=== PATIENT | female | born 1945 | race Two or more races ===

== ENCOUNTER 2024-07-27 22:22 | Inpatient (IN) | payer BC, OTHER ==
[~2024-07-27] VITALS: Ht 152.4 cm; Wt 60.0 kg
--- NOTE | 2024-07-27 22:40 | ED.PDOC ---
GI ASSESSMENT HPI Comments 78-year-old female who came to ER via EMS for GI bleed. Per EMS, patient was picked up at home, or patient has been complaining of left upper quadrant abdominal pain since yesterday, associated with nausea, vomiting, rectal pain and 1 episode of bright red rectal bleeding when she went to the bathroom. Chief Complaint: GI bleed Time Seen by MD: 22:40 Reviewed Notes: Legal Director Notes Allergies: Coded Allergies: No Known Drug Allergy (Verified Allergy, Unknown, 07/27/24) Information Source: Patient, Emergency Med Personnel Mode of Arrival: EMS Timing: Hours Duration: Intermittent Prehospital treatment: None Quality: Aching Vomitus: Watery Stool: Blood Streaked Severity: Moderate Recent: None Recent Hx of: None Pain Location: LUQ Modifying Factors: Nothing Associated sign and symptoms: Nausea, Vomiting, Hematochezia, Abdominal Pain Past Medical History PAST MEDICAL HISTORY: DM, HTN Surgical History: Denies all surgeries ACOUSTIC ENGINEER History: Denies all ACOUSTIC ENGINEER Hx Family History Family History: Reviewed,noncontributory to illness Social History Smoker: Non-Smoker Alcohol: Denies ETOH Use Drugs: Denies Drug Use Lives In: Home Constitutional: denies: chills, diaphoresis, fatigue, fever, malaise, sweats, weakness, others EENTM: denies: blurred vision, double vision, ear bleeding, ear discharge, ear drainage, ear pain, ear ringing, eye pain, eye redness, hearing loss, mouth pain, mouth swelling, nasal discharge, nose bleeding, nose congestion, nose pain, photophobia, tearing, throat pain, throat swelling, voice changes, others Respiratory: denies: cough, hemoptysis, orthopnea, SOB at rest, shortness of breath, SOB with excertion, stridor, wheezing, others Cardiovascular: denies: chest pain, dizzy spells, diaphoresis, Dyspnea on exertion, edema, irregular heart beat, left arm pain, lightheadedness, palpita tions, PND, syncope, others Gastrointestinal: reports: nausea, rectal bleeding, rectal pain, vomiting; denies: abdomen distended, abdominal pain, blood streaked bowels, constipated, diarrhea, dysphagia, difficulty swallowing, hematemesis, melena, poor appetite, poor fluid intake, others Genitourinary: denies: abnormal vagina bleeding, burning, dyspareunia, dysuria, flank pain, frequency, hematuria, incontinence, pain, , vagina discharge, urgency, others Neurological: denies: dizziness, fainting, headache, left sided numbness, left sided weakness, numbness, paresthesia, pre-existing deficit, right sided numbness, right sided weakness, seizure, speech problems, tingling, tremors, weakness, others Musculoskeletal: denies: back pain, gout, joint pain, joint swelling, muscle pain, muscle stiffness, neck pain, others Integumetry: denies: bruises, change in color, change in hair/nails, dryness, laceration, lesions, lumps, rash, wounds, others Allergic/Immunocompromised: denies: Difficulty Healing, Frequent Infections, Hives, Itching, others Hematologic/Lymphatic: denies: anemia, blood clots, easy bleeding, easy bruising, swollen glands, others Endocrine: denies: excessive hunger, excessive sweating, excessive thirst, excessive urination, flushing, intolerance to cold, intolerance to heat, unexplained weight gain, unexplained weight loss, others Psychiatric: denies: anxiety, bipolar disorder, depression, hopeless, panic disorder, schizophrenia, sleepless, suicidal, others Physical Exam General Appearance: No Apparent Distress, Normal HEENT: Normal ENT Inspection, Pharynx Normal, TMs Normal Neck: Full Range of Motion, Non-Tender, Normal, Normal Inspection Respiratory: Chest Non-Tender, Lungs Clear, No Accessory Muscle Use, No Respiratory Distress, Normal Breath Sounds Cardiovascular: No Edema, No JVD, No Murmur, No Gallop, Normal Peripheral Pulses, Regular Rate/Rhythm Breast Exam: Deferred Gastrointestinal: No Organomegaly, Non Tender, No Pulsatile Mass, Normal Bowel Sounds, Soft Genitalia: Deferred Pelvic: Deferred Rectal: Deferred Extremities: No calf tenderness, Normal capillary refill, Normal inspection, Normal range of motion, Non-tender, No pedal edema Musculoskeletal : Apperance: Normal Neurologic: Alert, pattern mechanic II-XII nml as Tested, No Motor Deficits, Normal Affect, Normal Mood, No Sensory Deficits Cerebellar Function: Normal Reflexes: Normal Skin: Dry, Normal Color, Warm Lymphatic: No Adenopathy Was a procedure done? Was a procedure done?: No GI differential Dx Differential Diagnosis: Constipation, Diverticular disease, Gastritis/PUD, Gastroenteritis, GI hemorrhage, Inflammatory BD, Ischemic Bowel, Pancreatitis, UTI, Urolithiasis, Anemia X-Ray, Labs, Meds, VS Vital Signs Date Time Temp Pulse Resp B/P (MAP) Pulse Ox O2 Delivery O2 Flow Rate FiO2 07/27/24 23:16 97.5 86 18 118/86 (97) 94 Lab Test 07/28/24 00:35 07/27/24 22:46 Range/Units Urine Color Light-brown Yellow Urine Clarity Ex.turbid Clear Urine pH 6.0 5.0-9.0 Urine Specific [place] 1.015 1.001-1.035 Urine Protein 2+ H Negative Urine Ketones Negative Negative Urine Blood 2+ H Negative /uL Urine Nitrite 2+ H Negative Urine Bilirubin Negative Negative Urine Urobilinogen Normal Negative mg/dL Urine Leukocyte Esterase 3+ Negative /uL Urine RBC 7 0 - 4 /hpf Urine WBC 3818 0 - 5 /hpf Urine WBC Clumps Present None Seen /hpf Urine Squamous Epithelial Cells None seen <5 /hpf Urine Bacteria None seen None Seen /hpf Urine Mucus Few None Seen Urine Yeast (Budding) Many None Seen /hpf Urine Glucose 3+ H Normal mg/dL White Blood Count 4.9 4.4-10.8 10^3/uL Red Blood Count 3.04 L 4.0-5.20 10^6/uL Hemoglobin 9.6 L 12.2-16.2 g/dL Hematocrit 28.2 L 36.0-46.0 % Mean Corpuscular Volume 92.7 80.0-100.0 fL Mean Corpuscular Hemoglobin 31.6 28.0-32.0 pg Mean Corpuscular Hemoglobin Concent 34.0 32.0-36.0 g/dL Red Cell Distribution Width 16.4 H 11.8-14.3 % Platelet Count 285 140-450 10^3/uL Mean Platelet Volume 6.9 6.9-10.8 fL Neutrophils (%) (Auto) 77.4 37.0-80.0 % Lymphocytes (%) (Auto) 18.7 10.0-50.0 % Monocytes (%) (Auto) 1.8 0.0-12.0 % Eosinophils (%) (Auto) 1.4 0.0-7.0 % Basophils (%) (Auto) 0.7 0.0-2.0 % Neutrophils # (Auto) 3.8 1.6-8.6 10 ^3/uL Lymphocytes # (Auto) 0.9 0.4-5.4 10 ^3/uL Monocytes # (Auto) 0.1 0-1.3 10 ^3/uL Eosinophils # (Auto) 0.1 0-0.8 10 ^3/uL Basophils # (Auto) 0 0-0.2 10 ^3/uL Nucleated Red Blood Cells 0.1 % Prothrombin Time 10.8 9.3-11.8 sec Prothrombin Time INR 1.02 0.9-1.15 Activated Partial Thromboplast Time 28.2 24.5-34.5 SEC Sodium Level 137 136-145 mmol/L Potassium Level 4.2 3.5-5.1 mmol/L Chloride Level 106 98-107 mmol/L Carbon Dioxide Level 22 20-31 mmol/L Anion Gap 9 5-15 Blood Urea Nitrogen 49 H 9-23 mg/dL Creatinine 3.39 H 0.550-1.02 mg/dL Glomerular Filtration Rate Calc 13 >90 mL/min BUN/Creatinine Ratio 14.5 10.0-20.0 Serum Glucose 202 H 74-106 mg/dL Calcium Level 9.5 8.7-10.4 mg/dL Total Bilirubin 0.2 0.2-1.0 mg/dL Aspartate Amino Transferase (AST) 10 L 13-40 U/L Alanine Aminotransferase (ALT) < 9 7-40 U/L Alkaline Phosphatase 71 46-116 U/L Total Protein 5.5 L 5.7-8.2 g/dL Albumin 3.1 L 3.2-4.8 g/dL Lipase 115 H 12-53 U/L Current Medications Medications (Trade) Dose Ordered Sig/Anthony Route Start Time Stop Time Status Last Admin Sodium Chloride 500 ml @ 500 mls/hr Q1H ONCE IVB 07/27/24 22:45 07/27/24 23:44 DC 07/27/24 23:56 Ceftriaxone Sodium 50 ml @ 100 mls/hr ONCE ONCE IV 07/28/24 02:15 07/28/24 02:44 DC 07/28/24 02:46 Time of 1ST Reevaluation: 22:37 Reevaluation 1ST: Unchanged Time of 2ND Reevaluation: 02:52 Reevaluation 2ND: Unchanged Patient Education/Counseling: Diagnosis, Treatment Family Education/Counseling: No Family Present Departure 1 Departure Time of Disposition: 02:53 Impression: Primary Impression: Urinary tract infection Additional Impressions: Stercoral colitis Fracture of femoral neck, right Disposition: 09 ADMITTED INPATIENT Admit to: Med Surg Condition: Guarded Critical Care Note Critical Care Time?: Yes (35 min-critical care time only) Critical care comment: Total critical care time: Approximately 36 minutes Due to a high probability of clinically significant, life threatening deterioration, the patient required my highest level of preparedness to intervene emergently and I personally spent this critical care time directly and personally managing the patient. This critical care time included obtaining a history; examining the patient; pulse oximetry; ordering and review of studies; arranging urgent treatment with development of a management plan; evaluation of patient's response to treatment; frequent reassessment; and, discussions with other providers. This critical care time was performed to assess and manage the high probability of imminent, life-threatening deterioration that could result in multi-organ failure. It was exclusive of separately billable procedures and treating other patients. Stability Stability form required: No Heart Score Heart Score: Heart Score Response (Comments) Value History N/A 0 EKG N/A 0 Age N/A 0 Risk Factors N/A 0 Troponin N/A 0 Total 0 I personally scribed for SADA DAWKINS MD ([email or web address]) on 07/27/24 at 22:40. Electronically submitted by Dav Aquino ([facility]). SADA DAWKINS MD Jul 27, 2024 22:40
[2024-07-27 23:02] LABS: Basophils # (auto) 0 10 ^3/uL (0-0.2); Basophils % (auto) 0.7 % (0.0-2.0); Eosinophils # (auto) 0.1 10 ^3/uL (0-0.8); Eosinophils % (auto) 1.4 % (0.0-7.0); Hematocrit 28.2 % (36.0-46.0); Hemoglobin 9.6 g/dL (12.2-16.2); Lymphocytes # (auto) 0.9 10 ^3/uL (0.4-5.4); Lymphocytes % (auto) 18.7 % (10.0-50.0); Mean Corpuscular Hemoglobin 31.6 pg (28.0-32.0); Mean Corpuscular Volume 92.7 fL (80.0-100.0); Monocytes # (auto) 0.1 10 ^3/uL (0-1.3); Monocytes % (auto) 1.8 % (0.0-12.0); Neutrophils # (auto) 3.8 10 ^3/uL (1.6-8.6); Neutrophils % (auto) 77.4 % (37.0-80.0); Nucleated Red Blood Cells % 0.1 %; Platelet Count (auto) 285 10^3/uL (140-450); Red Blood Cells 3.04 10^6/uL (4.0-5.20); Red Cell Distribution Width 16.4 % (11.8-14.3); White Blood Cell 4.9 10^3/uL (4.4-10.8)
[2024-07-27 23:17] LABS: Alkaline Phosphatase 71 U/L (46-116); Anion Gap 9 (5-15); BUN/Creatinine Ratio 14.5 (10.0-20.0); Calcium 9.5 mg/dL (8.7-10.4); Carbon Dioxide 22 mmol/L (20-31); Chloride 106 mmol/L (98-107); Potassium 4.2 mmol/L (3.5-5.1); Sodium 137 mmol/L (136-145)
[2024-07-27 23:19] LABS: Alanine Aminotransferase < 9 U/L (7-40); Albumin 3.1 g/dL (3.2-4.8); Aspartate Aminotransferase 10 U/L (13-40); Bilirubin, Total 0.2 mg/dL (0.2-1.0); Blood Urea Nitrogen 49 mg/dL (9-23); Glucose 202 mg/dL (74-106); Total Protein 5.5 g/dL (5.7-8.2)
[2024-07-27 23:46] LABS: INR 1.02 (0.9-1.15); Partial Thromboplastin Time 28.2 SEC (24.5-34.5); Prothrombin Time 10.8 sec (9.3-11.8)
[2024-07-27] MEDS: SODIUM CHLORIDE 0.9% 500 ML IVB ONE (23:56)
[2024-07-27 23:59] LABS: Lipase 115 U/L (12-53)
[2024-07-28 01:37] LABS: Urine Bacteria None Seen /hpf (None Seen)
[2024-07-28 02:02] LABS: Urine Blood 2+ /uL (Negative); Urine Budding Yeast MANY /hpf (None Seen); Urine Clarity Ex.Turbid (Clear); Urine Color Light-Brown (Yellow); Urine Mucus FEW (None Seen); Urine Protein, UAD 2+ (Negative); Urine Specific Gravity 1.015 (1.001-1.035); Urine Squamous Epithelial Cell None Seen /hpf (<5); Urine Urobilinogen Normal (Negative); Urine WBC 3818 /hpf (0 - 5); Urine WBC Clumps PRESENT /hpf (None Seen)
--- NOTE | 2024-07-28 02:22 | DVH ---
CLINICAL HISTORY: abd pain, lower GI bleed TECHNIQUE: CT of the abdomen and pelvis was performed without intravenous contrast. This exam was per formed according to our departmental dose optimization program. Up-to-date CT equipment and radiation dose reduction techniques are utilized as appropriate. COMPARISON: None FINDINGS: Lower Thorax: Mild bronchial wall thickening in the lung bases. Linear bibasilar scarring or atelecta sis. Small bilateral pleural effusions. Normal-sized heart. Partially imaged mild aortic valve calci fications and mild coronary artery calcifications. Liver and Biliary system: Normal-sized liver. No definite hepatic lesion. There is cholelithiasis in a mildly dilated gallbladder. Question of gallbladder wall thickening. There is mild dilatation of th e common bile duct measuring 1.2 cm on coronal image 38. There is a calcification in the central live r which may be within a bile duct ( series 601 image 36 ). Spleen: Unremarkable. Adrenal Glands and Kidneys: Normal adrenal glands. There is no hydronephrosis or nephrolithiasis. Pancreas and Retroperitoneum: Mildly atrophic pancreas. There is no retroperitoneal lymphadenopathy. Aorta and Major Vessels: Aortoiliac vessels are normal in caliber containing mild calcified plaque. Bowel, Mesentery and Peritoneal space: Moderate to marked retained stool in the rectum with mild rect al wall thickening. Mild dilatation of the rectum measuring 7.1 cm AP on sagittal image 66. There is presacral edema. There is [id number] predominantly distal colonic diverticulosis. Normal append ix. There is no free air or loculated fluid collection. The remainder of the bowel loops are normal c aliber. Trace ascites. Pelvis: Atrophic uterus containing calcified fibroids. The urinary bladder is decompressed about a Fo yaniv catheter. There is no pelvic lymphadenopathy. Abdominal wall and Osseous Structures: There is mild body wall edema. There is chronic nonunited frac ture of the right femoral neck with coxa vera angulation. There is chronic lucency and destruction of the right femoral head, proximal right femoral shaft, and right acetabulum as well as some sclerosis . There is scattered heterotopic ossification about the right hip joint. There is a right hip joint e ffusion /soft tissue thickening . There is bony demineralization. There is moderate multilevel lower thoracic and lumbar spondylosis. A prominent lucency is seen within the medial left femoral head whic h could be a subchondral cyst. Tiny sclerotic foci in the proximal femurs and pelvis likely bone isl ands. Mild left curvature of the lumbar spine. Multilevel spondylolisthesis in the lumbar spine with grade 1/2 anterolisthesis at L4-L5. Multilevel degenerative neural foraminal and spinal stenosis with up to severe spinal stenosis and severe bilateral neural foraminal stenosis at L4-L5 IMPRESSION: 1. Marked retained stool in the rectum which is mildly dilated with mild wall thickening and presacra l edema. Consider stercoral colitis. 2. Chronic appearing nonunited fracture of the right femoral neck ; there is lucency and sclerosis of the proximal right femur, right femoral head and right acetabulum which could be posttraumatic or re flect sequelae of osteomyelitis with possible chronic and acute components. 3. Mildly dilated gallbladder with cholelithiasis and question of wall thickening. Correlate with ri t upper quadrant ultrasound if there is concern for acute cholecystitis. 4. Mild dilatation of the common bile duct. If there is clinical concern for biliary obstruction, th is could be further evaluated with MRCP. 5. Colonic diverticulosis which is [id number] distally. 6. Small bilateral pleural effusions, trace ascites, and mild body wall edema. 7. Calcified uterine fibroids. 8. Multilevel degenerative neural foraminal and spinal stenosis greatest at L4-L5 where there is grad e 1/2 anterolisthesis, severe bilateral neural foraminal and spinal stenosis.
[2024-07-28] MEDS: cefTRIAXone 1GM/50ML D5W 50 ML IV ONE (02:46)
[2024-07-28] MEDS ORDERED: MORPHINE SULFATE INJ 2 MG/ml SYRG IV PRN (05:30)
[2024-07-28] MEDS ORDERED: NITROGLYCERIN 0.4 MG SL TAB SL PRN (05:30)
[2024-07-28] MEDS ORDERED: ONDANSETRON HCL 4 MG/2 ML VIAL IV PRN (05:30)
--- NOTE | 2024-07-28 05:49 | DVHHP2 ---
VITOR GALEANO MOLD SETTER 07/28/24 0548: History of Present Illness Reason for Visit: BRBPR History of Present Illness 78-year-old female past medical history of C7 fracture, chronic right hip fract ure, asthma, DM, CKD, presents with complaints of lower abdominal pain and bright red blood per rectum x1 day. Patient is bed-bound. Abdomen is tender in the left lower quadrant. Sister states the patient was having bowel movement and bright red blood and clot was removed from the rectum. During the emergency department evaluation CT abdomen and pelvis was positive for stercoral colitis and had demonstration of the right hip fracture vs osteomyelitis. Patient and patient sister confirmed Right hip has chronic fracture for Which the patient chose not to have Surgery. At this time patient denies fevers, chills, shortness of breath, chest pain, nausea, vomiting. Cardiovascular: hyperipidemia Pulmonary: Asthma Musculoskeletal: Chronic low back pain Renal/: Chronic renal insuff Smoke: No ALCOHOL: none Drugs: None Lives: with Family Review of Systems Constitutional: No: Fever, Chills, Sweats, Weakness, Malaise, Other Eyes: No: Pain, Vision change, Conjunctivae inflammation, Eyelid inflammation, Other, Redness ENT: No: Ear pain, Ear discharge, Nose pain, Nose discharge, Nose congestion, Mouth pain, Mouth swelling, Throat pain, Throat swelling, Other Respiratory: No: Cough, Dry, Shortness of breath, SOB with excertion, Wheezing, Hemoptysis, Pleuritic Pain, Sputum, Wheezing, Other Cardiovascular: No: Chest Pain, Palpitations, Orthopnea, Paroxysmal Noc. Dyspnea, Edema, Lt Headedness, Other Gastrointestinal: Abdominal Pain, Constipation, Hematochezia; No: Nausea, Vomiting, Diarrhea, Melena, Other Genitourinary: No Dysuria, No Frequency, No Incontinence, No Hematuria, No Retention, No Other Musculoskeletal: No: other, neck pain, shoulder pain, arm pain, back pain, hand pain, leg pain, foot pain Skin: No: Rash, Lesions, Jaundice, Bruising, Other Neurological: No: Weakness, Numbness, Incoordination, Change in speech, Confusion, Seizures, Other Allergies: Coded Allergies: No Known Drug Allergy (Verified Allergy, Unknown, 07/27/24) Medications Current Medications Medications Dose Ordered Sig/Anthony Route Start Time Stop Time Status Last Admin Dose Admin Sodium Chloride 500 ml @ 50 mls/hr Q10H IV 07/28/24 05:30 07/28/24 15:29 UNV Docusate Sodium 100 mg BID PO 07/28/24 10:00 UNV Acetaminophen 650 mg Q6HP PRN PO 07/28/24 05:30 UNV Ondansetron HCl 4 mg Q4HP PRN IV 07/28/24 05:30 UNV Nitroglycerin 0.4 mg Q5MINP PRN SL 07/28/24 05:30 UNV Morphine Sulfate 2 mg Q30M PRN IV 07/28/24 05:30 UNV Psyllium Hydrophilic Mucilloid 1 pkg BID PO 07/28/24 10:00 UNV Ceftriaxone Sodium 50 ml @ 100 mls/hr DAILY IV 07/28/24 10:00 UNV Exam Vital Signs Vital Signs Date Time Temp Pulse Resp B/P (MAP) Pulse Ox O2 Delivery O2 Flow Rate FiO2 07/28/24 03:02 98 16 123/68 (86) 97 07/28/24 02:52 Room Air* 0 21 07/27/24 23:16 97.5 General Appearance: Alert, Oriented X3, Cooperative, mild distress HEENT: Atraumatic, PERRLA, EOMI Respiratory: Clear to auscultation, Normal air movement Cardiovascular: Regular rate, Normal S1, Normal S2 Abdominal: Soft, Other (Diffuse Tenderness to left lower quadrant) Extremities: No clubbing, No cyanosis, No edema Skin: No rashes, No breakdown Neuro: Normal speech Psych/Mental Status: Mental status NL, Mood NL Labs/Xrays Labs Test 07/28/24 00:35 07/27/24 22:46 Range/Units Urine Color Light-brown Yellow Urine Clarity Ex.turbid Clear Urine pH 6.0 5.0-9.0 Urine Specific [place] 1.015 1.001-1.035 Urine Protein 2+ H Negative Urine Ketones Negative Negative Urine Blood 2+ H Negative /uL Urine Nitrite 2+ H Negative Urine Bilirubin Negative Negative Urine Urobilinogen Normal Negative mg/dL Urine Leukocyte Esterase 3+ Negative /uL Urine RBC 7 0 - 4 /hpf Urine WBC 3818 0 - 5 /hpf Urine WBC Clumps Present None Seen /hpf Urine Squamous Epithelial Cells None seen <5 /hpf Urine Bacteria None seen None Seen /hpf Urine Mucus Few None Seen Urine Yeast (Budding) Many None Seen /hpf Urine Glucose 3+ H Normal mg/dL White Blood Count 4.9 4.4-10.8 10^3/uL Red Blood Count 3.04 L 4.0-5.20 10^6/uL Hemoglobin 9.6 L 12.2-16.2 g/dL Hematocrit 28.2 L 36.0-46.0 % Mean Corpuscular Volume 92.7 80.0-100.0 fL Mean Corpuscular Hemoglobin 31.6 28.0-32.0 pg Mean Corpuscular Hemoglobin Concent 34.0 32.0-36.0 g/dL Red Cell Distribution Width 16.4 H 11.8-14.3 % Platelet Count 285 140-450 10^3/uL Mean Platelet Volume 6.9 6.9-10.8 fL Neutrophils (%) (Auto) 77.4 37.0-80.0 % Lymphocytes (%) (Auto) 18.7 10.0-50.0 % Monocytes (%) (Auto) 1.8 0.0-12.0 % Eosinophils (%) (Auto) 1.4 0.0-7.0 % Basophils (%) (Auto) 0.7 0.0-2.0 % Neutrophils # (Auto) 3.8 1.6-8.6 10 ^3/uL Lymphocytes # (Auto) 0.9 0.4-5.4 10 ^3/uL Monocytes # (Auto) 0.1 0-1.3 10 ^3/uL Eosinophils # (Auto) 0.1 0-0.8 10 ^3/uL Basophils # (Auto) 0 0-0.2 10 ^3/uL Nucleated Red Blood Cells 0.1 % Prothrombin Time 10.8 9.3-11.8 sec Prothrombin Time INR 1.02 0.9-1.15 Activated Partial Thromboplast Time 28.2 24.5-34.5 SEC Sodium Level 137 136-145 mmol/L Potassium Level 4.2 3.5-5.1 mmol/L Chloride Level 106 98-107 mmol/L Carbon Dioxide Level 22 20-31 mmol/L Anion Gap 9 5-15 Blood Urea Nitrogen 49 H 9-23 mg/dL Creatinine 3.39 H 0.550-1.02 mg/dL Glomerular Filtration Rate Calc 13 >90 mL/min BUN/Creatinine Ratio 14.5 10.0-20.0 Serum Glucose 202 H 74-106 mg/dL Calcium Level 9.5 8.7-10.4 mg/dL Total Bilirubin 0.2 0.2-1.0 mg/dL Aspartate Amino Transferase (AST) 10 L 13-40 U/L Alanine Aminotransferase (ALT) < 9 7-40 U/L Alkaline Phosphatase 71 46-116 U/L Total Protein 5.5 L 5.7-8.2 g/dL Albumin 3.1 L 3.2-4.8 g/dL Lipase 115 H 12-53 U/L Assessment/Plan Assessment/Plan Chronic right femoral neck fracture Lower GI bleed Stercoral colitis DM CKD at baseline, (06/09/24 creat 3.94, GFR 11; 07/28/24 creat 3.39, GFR 13) Acute UTI Hx C7 fracture, managed by Rhys Busch DM Plan Admit medical floor Consult gastroenterology. Clear liquid diet. Soup suds enema. Consult orthopedic. Consult nephrology. Monitor BMP. Trend BUN / creatinine. IV ABX Blood glucose checks ACHS with regular insulin sliding scale coverage for optimal glycemic management. Physical therapy evaluation CM consult for home health. GI PPX protonix / DVT ppx heparin Plan discussed with: Patient, Other (Patient sister) My Orders Orders - VITOR GALEANO NP Procedure Category Date Status Time Enema ED NURSING 07/28/24 Transmitted Admit ADMIT 07/28/24 Transmitted 05:28 Code Status CODE 07/28/24 Transmitted 05:28 [facility]ital Signs [facility] 07/28/24 In Process 05:28 Review Orders With LILIAN 07/28/24 In Process Adm. 05:28 Encourage Activity As LILIAN 07/28/24 In Process Tolerate 05:28 Sodium Chloride 0.9% PHA 07/28/24 Logged 05:30 Oxygen By Face Mask RT 07/28/24 Transmitted 05:28 Docusate Sodium PHA 07/28/24 Logged Capsule (Colace 10:00 Acetaminophen Tablet PHA 07/28/24 Logged (Tylenol Tablet) 05:30 Notify Of Changes LILIAN 07/28/24 In Process From Base 05:28 Advance Directive LILIAN 07/28/24 In Process 05:28 Basic Metabolic Panel LAB 07/29/24 Verified 05:00 Basic Metabolic Panel LAB 07/30/24 Verified 05:00 Basic Metabolic Panel LAB 07/31/24 Verified 05:00 Complete Blood Count LAB 07/29/24 Verified 05:00 Complete Blood Count LAB 07/30/24 Verified 05:00 Complete Blood Count LAB 07/31/24 Verified 05:00 Patient Condition ORDERS 07/28/24 Transmitted 05:28 Allergies LILIAN 07/28/24 In Process 05:28 Ondansetron Hcl PHA 07/28/24 Logged (Zofran) 05:30 Sequential LILIAN 07/28/24 In Process Compression Device Nitroglycerin PHA 07/28/24 Logged Sublingual (Ntrostat 05:30 Morphine Sulfate PHA 07/28/24 Logged Injection 05:30 Stat Ekg For Chest LILIAN 07/28/24 In Process Pain 05:28 Notify Of Changes LILIAN 07/28/24 In Process From Base 05:28 Production Officer For LILIAN 07/28/24 In Process 24 Hours 05:28 Emergency Dysrhythmia LILIAN 07/28/24 In Process Protocol 05:28 Rhythm Strips Once LILIAN 07/28/24 In Process Every Shift 05:28 Oxygen By Nasal RT 07/28/24 Transmitted Cannula 05:28 *[facility] CONS 07/28/24 Transmitted 05:28 *Cons[address] Dr[address] Turk CONS 07/28/24 Transmitted Samantha 05:28 *Dr. [facility] CONS 07/28/24 Transmitted -[place] 05:28 Soap Armaan Enema ORDERS 07/28/24 Transmitted 05:28 Soap Armaan Enema ORDERS 07/28/24 Transmitted 11:28 Soap Armaan Enema ORDERS 07/28/24 Transmitted 17:28 Soap Armaan Enema ORDERS 07/28/24 Transmitted 23:28 Soap Armaan Enema ORDERS 07/29/24 Transmitted 05:28 Soap Armaan Enema ORDERS 07/29/24 Transmitted 11:28 Psyllium Powder PHA 07/28/24 Logged (Metamucil Powder) 10:00 Ceftriaxone 1gm/50ml PHA 07/28/24 Logged D5w (Rocephin) 10:00 Date of Service: Jul 28, 2024 Billing Provider: SANDHYA JOHNSON MD Common Visit Codes: NOT BILLABLE SANDHYA JOHNSON MD 07/28/24 1713: Review of Systems Allergies: Coded Allergies: No Known Drug Allergy (Verified Allergy, Unknown, 07/27/24) Additional Comments Additional Comments Additional Comments Patient was seen and evaluated by me. I agree with the assessment and plan as outlined by my nurse practitioner. VITOR GALEANO NP Jul 28, 2024 05:48 SANDHYA JOHNSON MD Jul 28, 2024 17:13
[2024-07-28] MEDS: SODIUM CHLORIDE 0.9% 500 ML IV SCH (06:06)
[2024-07-28] MEDS ORDERED: DEXTROSE (50%) 50ML SYRG IV PRN (06:45)
[2024-07-28] MEDS: ACCU-CHEK COMFORT CURVE STRIP VI SCH (06:58)
[2024-07-28] MEDS: InsuLIN REG 1unit/0.01ml Soln (100units/ml) SC SCH (06:58)
[2024-07-28 08:00] VITALS: PULSE 96; RESP 19; O2SAT 99
[2024-07-28] MEDS: PSYLLIUM PWD 5.8GM PKG PO SCH (10:26)
[2024-07-28] MEDS: DOCUSATE SOD 100 MG CAP PO SCH (10:26)
[2024-07-28 10:49] VITALS: O2SAT 95
[2024-07-28] MEDS ORDERED: LOSA-534 PO (11:21)
[2024-07-28] MEDS ORDERED: DOCU-265 PO (11:21)
[2024-07-28] MEDS ORDERED: ATOR20TA50 PO (11:21)
[2024-07-28] MEDS ORDERED: SEVE0.8P2 PO (11:21)
[2024-07-28] MEDS ORDERED: NIFE1TAB31 PO (11:21)
[2024-07-28] MEDS ORDERED: OXYC325T14 PO (11:21)
[2024-07-28] MEDS ORDERED: ALBU108A5 INH (11:21)
[2024-07-28] MEDS ORDERED: METF-372 PO (11:21)
[2024-07-28 15:57] LABS: Basophils # (auto) 0 10 ^3/uL (0-0.2); Basophils % (auto) 0.5 % (0.0-2.0); Eosinophils # (auto) 0.1 10 ^3/uL (0-0.8); Eosinophils % (auto) 1.3 % (0.0-7.0); Hematocrit 27.3 % (36.0-46.0); Hemoglobin 9.1 g/dL (12.2-16.2); Lymphocytes % (auto) 20.6 % (10.0-50.0); Mean Corpuscular Hemoglobin 31.2 pg (28.0-32.0); Mean Corpuscular Hgb Conc. 33.5 g/dL (32.0-36.0); Mean Corpuscular Volume 93.1 fL (80.0-100.0); Monocytes # (auto) 0.1 10 ^3/uL (0-1.3); Neutrophils # (auto) 3.5 10 ^3/uL (1.6-8.6); Neutrophils % (auto) 75.6 % (37.0-80.0); Nucleated Red Blood Cells % 0.1 %; Platelet Count (auto) 277 10^3/uL (140-450); Red Blood Cells 2.93 10^6/uL (4.0-5.20); Red Cell Distribution Width 16.3 % (11.8-14.3); White Blood Cell 4.7 10^3/uL (4.4-10.8)
[2024-07-28 16:07] LABS: Chloride 106 mmol/L (98-107); Potassium 4.5 mmol/L (3.5-5.1); Sodium 136 mmol/L (136-145)
[2024-07-28 16:08] LABS: Anion Gap 9 (5-15); Carbon Dioxide 21 mmol/L (20-31)
[2024-07-28 16:09] LABS: Calcium 9.4 mg/dL (8.7-10.4)
[2024-07-28 16:14] LABS: BUN/Creatinine Ratio 14.1 (10.0-20.0)
[2024-07-28 16:15] LABS: Blood Urea Nitrogen 49 mg/dL (9-23); Glucose 154 mg/dL (74-106)
[2024-07-28 16:57] VITALS: BP 138/69; PULSE 88; RESP 14; TEMP 97.8; O2SAT 100
[2024-07-28] MEDS ORDERED: hydrALAZINE HCL 20 MG/ML VL IV PRN (17:15)
[2024-07-28 20:00] VITALS: PULSE 94; RESP 16; O2SAT 100
[2024-07-28 21:00] VITALS: BP 146/71; PULSE 94; RESP 17; TEMP 97.7; O2SAT 100
[2024-07-28] MEDS: ATORVASTATIN 20 MG TAB PO SCH (21:58)
--- NOTE | 2024-07-28 22:42 | DVHINCON2 ---
Date of service: Jul 28, 2024 Referring Physician Tad garcia Reason for Consultation Rectal bleeding History of Present Illness 78-year-old female past medical history of C7 fracture, chronic right hip fracture, asthma, DM, CKD, presents with complaints of lower abdominal pain and bright red blood per rectum x1 day. Patient is bed-bound. Abdomen is tender in the left lower quadrant. Sister states the patient was having bowel movement and bright red blood and clot was removed from the rectum. Patient has been having constipation. During the emergency department evaluation CT abdomen and pelvis was positive for stercoral colitis and had demonstration of the right hip fracture vs osteomyelitis. Patient and patient sister confirmed Right hip has chronic fracture for which the patient chose not to have Surgery. At this time patient denies fevers, chills, shortness of breath, chest pain, nausea, vomiting. Patient was seen earlier in ER bed 25. No further GI bleeding was reported Past Medical History Cardiovascular: hyperipidemia Pulmonary: Asthma Musculoskeletal: Chronic low back pain Renal/: Chronic renal insuff Past Surgical History Negative Family History: Patient reports no known family medical history. Allergies: Coded Allergies: No Known Drug Allergy (Verified Allergy, Unknown, 07/27/24) Home Meds Reported Medications Nifedipine (Nifedipine Er) 30 Mg Tab, 1 TAB PO DAILY 07/28/24 Atorvastatin Calcium (ATORVASTATIN CALCIUM) 20 Mg Tab, 1 TAB PO DAILY 07/28/24 Losartan Potassium (Losartan Potassium) 50 Mg Tab, 1 TAB PO DAILY 07/28/24 Metformin Hydrochloride (Metformin Hcl) 1,000 Mg Tab, 1 TAB PO DAILY 07/28/24 Sevelamer Carbonate (Sevelamer Carbonate) 0.8 Gm Pow, 3 PO TID 07/28/24 Oxycodone W/ Acetaminophen (Apap/Oxycodone) 1 Tab Tab, 1 TAB PO BID, TAB 07/28/24 Albuterol Sulfate (Albuterol Sulfate Hfa) 108 Mcg/Act Aer, INH 07/28/24 Docusate Sodium (Docusate Sodium) 100 Mg Cap, 1 CAP PO BID 07/28/24 Current Medications Current Medications Medications (Trade) Dose Ordered Sig/Anthony Route PRN Reason Start Time Stop Time Status Last Admin Sodium Chloride 500 ml @ 50 mls/hr Q10H IV 07/28/24 05:30 07/28/24 15:29 DC 07/28/24 06:06 Docusate Sodium (Colace Capsule) 100 mg BID PO 07/28/24 10:00 07/28/24 21:58 Acetaminophen (Tylenol Tablet) 650 mg Q6HP PRN PO PAIN SCALE 1-3 OR TEMP>100.4 07/28/24 05:30 Ondansetron HCl (Zofran) 4 mg Q4HP PRN IV NAUSEA / VOMITING 07/28/24 05:30 Nitroglycerin (Ntrostat Sublingual) 0.4 mg Q5MINP PRN SL FOR CHEST PAIN 07/28/24 05:30 Morphine Sulfate 2 mg Q30M PRN IV FOR CHEST PAIN 07/28/24 05:30 Psyllium Hydrophilic Mucilloid (Metamucil Powder) 1 pkg BID PO 07/28/24 10:00 07/28/24 21:58 Ceftriaxone Sodium 50 ml @ 100 mls/hr Q24H IV 07/29/24 03:00 Diagnostic Test (Pha) (Accu-Chek Comfort Curve T) 1 strip ACHS 07/28/24 07:00 07/28/24 22:04 Insulin Human Regular (InsuLIN R) ACHS SC 07/28/24 07:00 07/28/24 06:58 Dextrose 50 ml UD PRN IV Blood Sugar LESS THAN 60 07/28/24 06:45 Nifedipine (Procardia Xl (Time-Release)) 30 mg DAILY PO 07/29/24 10:00 Atorvastatin Calcium (Lipitor) 20 mg HS PO 07/28/24 22:00 07/28/24 21:58 Hydralazine HCl (Apresoline Injection) 10 mg Q6HP PRN IV SBP>150 07/28/24 17:15 Vital Signs Vital Signs Date Time Temp Pulse Resp B/P (MAP) Pulse Ox O2 Delivery O2 Flow Rate FiO2 07/28/24 21:00 97.7 94 17 146/71 (96) 100 97.7 07/28/24 10:49 Nasal Cannula* 2 28 Physical Exam General Appearance: Alert, Oriented X3, Cooperative, mild distress, thin cachectic lady chronically ill-appearing HEENT: Atraumatic, PERRLA, EOMI Respiratory: Clear to auscultation, Normal air movement Cardiovascular: Regular rate, Normal S1, Normal S2 Abdominal: Soft, Other (Diffuse Tenderness to left lower quadrant) Extremities: No clubbing, No cyanosis, No edema Skin: No rashes, No breakdown Neuro: Normal speech Psych/Mental Status: Mental status NL, Mood NL Labs/Diagnostic Data Labs Test 07/28/24 15:43 07/28/24 11:40 07/28/24 00:35 07/27/24 22:46 Range/Units White Blood Count 4.7 4.4-10.8 10^3/uL Red Blood Count 2.93 L 4.0-5.20 10^6/uL Hemoglobin 9.1 L 12.2-16.2 g/dL Hematocrit 27.3 L 36.0-46.0 % Mean Corpuscular Volume 93.1 80.0-100.0 fL Mean Corpuscular Hemoglobin 31.2 28.0-32.0 pg Mean Corpuscular Hemoglobin Concent 33.5 32.0-36.0 g/dL Red Cell Distribution Width 16.3 H 11.8-14.3 % Platelet Count 277 140-450 10^3/uL Mean Platelet Volume 6.9 6.9-10.8 fL Neutrophils (%) (Auto) 75.6 37.0-80.0 % Lymphocytes (%) (Auto) 20.6 10.0-50.0 % Monocytes (%) (Auto) 2.0 0.0-12.0 % Eosinophils (%) (Auto) 1.3 0.0-7.0 % Basophils (%) (Auto) 0.5 0.0-2.0 % Neutrophils # (Auto) 3.5 1.6-8.6 10 ^3/uL Lymphocytes # (Auto) 1.0 0.4-5.4 10 ^3/uL Monocytes # (Auto) 0.1 0-1.3 10 ^3/uL Eosinophils # (Auto) 0.1 0-0.8 10 ^3/uL Basophils # (Auto) 0 0-0.2 10 ^3/uL Nucleated Red Blood Cells 0.1 % Sodium Level 136 136-145 mmol/L Potassium Level 4.5 3.5-5.1 mmol/L Chloride Level 106 98-107 mmol/L Carbon Dioxide Level 21 20-31 mmol/L Anion Gap 9 5-15 Blood Urea Nitrogen 49 H 9-23 mg/dL Creatinine 3.47 H 0.550-1.02 mg/dL Glomerular Filtration Rate Calc 13 >90 mL/min BUN/Creatinine Ratio 14.1 10.0-20.0 Serum Glucose 154 H 74-106 mg/dL Calcium Level 9.4 8.7-10.4 mg/dL POC Glucose 132 H 70-106 mg/dl Urine Color Light-brown Yellow Urine Clarity Ex.turbid Clear Urine pH 6.0 5.0-9.0 Urine Specific [place] 1.015 1.001-1.035 Urine Protein 2+ H Negative Urine Ketones Negative Negative Urine Blood 2+ H Negative /uL Urine Nitrite 2+ H Negative Urine Bilirubin Negative Negative Urine Urobilinogen Normal Negative mg/dL Urine Leukocyte Esterase 3+ Negative /uL Urine RBC 7 0 - 4 /hpf Urine WBC 3818 0 - 5 /hpf Urine WBC Clumps Present None Seen /hpf Urine Squamous Epithelial Cells None seen <5 /hpf Urine Bacteria None seen None Seen /hpf Urine Mucus Few None Seen Urine Yeast (Budding) Many None Seen /hpf Urine Glucose 3+ H Normal mg/dL Prothrombin Time 10.8 9.3-11.8 sec Prothrombin Time INR 1.02 0.9-1.15 Activated Partial Thromboplast Time 28.2 24.5-34.5 SEC Total Bilirubin 0.2 0.2-1.0 mg/dL Aspartate Amino Transferase (AST) 10 L 13-40 U/L Alanine Aminotransferase (ALT) < 9 7-40 U/L Alkaline Phosphatase 71 46-116 U/L Total Protein 5.5 L 5.7-8.2 g/dL Albumin 3.1 L 3.2-4.8 g/dL Lipase 115 H 12-53 U/L CT SCAN ABD PELVIS IMPRESSION: 1. Marked retained stool in the rectum which is mildly dilated with mild wall thickening and presacral edema. Consider stercoral colitis. 2. 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 3. Mildly dilated gallbladder with cholelithiasis and question of wall thickening. Correlate with right upper quadrant ultrasound if there is concern for acute cholecystitis. 4. Mild dilatation of the common bile duct. If there is clinical concern for biliary obstruction, this could be further evaluated with MRCP. 5. Colonic diverticulosis which is [id number] distally. 6. Small bilateral pleural effusions, trace ascites, and mild body wall edema. 7. Calcified uterine fibroids. 8. Multilevel degenerative neural foraminal and spinal stenosis greatest at L4- L5 where there is grade 1/2 anterolisthesis, severe bilateral neural foraminal and spinal stenosis. Problems(with codes): (1) Abnormal finding on GI tract imaging (2) Pancreatitis (3) Cholelithiasis (4) Stercoral colitis (5) Fracture of femoral neck, right (6) Urinary tract infection (7) Acute on chronic renal insufficiency (8) Anemia of chronic disease (9) Anemia in chronic kidney disease Plan/Recommendation Plan IV fluid hydration IV antibiotics Stool softeners Metamucil and sennasoides Trial of MiraLax and a fleets enema Protonix 40 mg IV daily Check urine culture Overall prognosis remains guarded I will follow this patient with you Clear liquid diet advance to full liquid Plan discussed with: Other (Sister and ER nurse) WILFRID GARCIA MD Jul 28, 2024 22:42
[2024-07-29] VITALS (7 sets, daily range): BP systolic 122–145; BP diastolic 68–80; PULSE 79–94; RESP 16–19; TEMP 97.7–98; O2SAT 92–100
[2024-07-29] MEDS: POLYETHYLENE GLYCOL 17 GM PWDR PO ONE (00:57)
[2024-07-29] MEDS: cefTRIAXone 1GM/50ML D5W 50 ML IV SCH (03:55)
--- NOTE | 2024-07-29 06:46 | DVHINCON2 ---
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 Allergies: Coded Allergies: No Known Drug Allergy (Verified Allergy, Unknown, 07/27/24) Home Meds Reported Medications Nifedipine (Nifedipine Er) 30 Mg Tab, 1 TAB PO DAILY 07/28/24 Atorvastatin Calcium (ATORVASTATIN CALCIUM) 20 Mg Tab, 1 TAB PO DAILY 07/28/24 Losartan Potassium (Losartan Potassium) 50 Mg Tab, 1 TAB PO DAILY 07/28/24 Metformin Hydrochloride (Metformin Hcl) 1,000 Mg Tab, 1 TAB PO DAILY 07/28/24 Sevelamer Carbonate (Sevelamer Carbonate) 0.8 Gm Pow, 3 PO TID 07/28/24 Oxycodone W/ Acetaminophen (Apap/Oxycodone) 1 Tab Tab, 1 TAB PO BID, TAB 07/28/24 Albuterol Sulfate (Albuterol Sulfate Hfa) 108 Mcg/Act Aer, INH 07/28/24 Docusate Sodium (Docusate Sodium) 100 Mg Cap, 1 CAP PO BID 07/28/24 Current Medications Current Medications Medications (Trade) Dose Ordered Sig/Anthony Route PRN Reason Start Time Stop Time Status Last Admin Docusate Sodium (Colace Capsule) 100 mg BID PO 07/28/24 10:00 07/28/24 23:08 DC 07/28/24 21:58 Psyllium Hydrophilic Mucilloid (Metamucil Powder) 1 pkg BID PO 07/28/24 10:00 07/28/24 21:58 Ceftriaxone Sodium 50 ml @ 100 mls/hr Q24H IV 07/29/24 03:00 07/29/24 03:55 Diagnostic Test (Pha) (Accu-Chek Comfort Curve T) 1 strip ACHS 07/28/24 07:00 07/29/24 06:38 Insulin Human Regular (InsuLIN R) ACHS SC 07/28/24 07:00 07/28/24 06:58 Dextrose 50 ml UD PRN IV Blood Sugar LESS THAN 60 07/28/24 06:45 Nifedipine (Procardia Xl (Time-Release)) 30 mg DAILY PO 07/29/24 10:00 Atorvastatin Calcium (Lipitor) 20 mg HS PO 07/28/24 22:00 07/28/24 21:58 Hydralazine HCl (Apresoline Injection) 10 mg Q6HP PRN IV SBP>150 07/28/24 17:15 Docusate Sodium (Colace Capsule) 100 mg BID PO 07/29/24 10:00 Vital Signs Vital Signs Date Time Temp Pulse Resp B/P (MAP) Pulse Ox O2 Delivery O2 Flow Rate FiO2 07/29/24 05:00 98.0 94 16 145/73 (97) 99 98.0 07/28/24 20:00 Nasal Cannula* 2 28 Physical Exam NAD RLE: short +TA/GS/EHL/FHl foot wwp Labs/Diagnostic Data Labs Test 07/28/24 21:33 07/28/24 15:43 07/28/24 00:35 07/27/24 22:46 Range/Units POC Glucose 115 H 70-106 mg/dl White Blood Count 4.7 4.4-10.8 10^3/uL Red Blood Count 2.93 L 4.0-5.20 10^6/uL Hemoglobin 9.1 L 12.2-16.2 g/dL Hematocrit 27.3 L 36.0-46.0 % Mean Corpuscular Volume 93.1 80.0-100.0 fL Mean Corpuscular Hemoglobin 31.2 28.0-32.0 pg Mean Corpuscular Hemoglobin Concent 33.5 32.0-36.0 g/dL Red Cell Distribution Width 16.3 H 11.8-14.3 % Platelet Count 277 140-450 10^3/uL Mean Platelet Volume 6.9 6.9-10.8 fL Neutrophils (%) (Auto) 75.6 37.0-80.0 % Lymphocytes (%) (Auto) 20.6 10.0-50.0 % Monocytes (%) (Auto) 2.0 0.0-12.0 % Eosinophils (%) (Auto) 1.3 0.0-7.0 % Basophils (%) (Auto) 0.5 0.0-2.0 % Neutrophils # (Auto) 3.5 1.6-8.6 10 ^3/uL Lymphocytes # (Auto) 1.0 0.4-5.4 10 ^3/uL Monocytes # (Auto) 0.1 0-1.3 10 ^3/uL Eosinophils # (Auto) 0.1 0-0.8 10 ^3/uL Basophils # (Auto) 0 0-0.2 10 ^3/uL Nucleated Red Blood Cells 0.1 % Sodium Level 136 136-145 mmol/L Potassium Level 4.5 3.5-5.1 mmol/L Chloride Level 106 98-107 mmol/L Carbon Dioxide Level 21 20-31 mmol/L Anion Gap 9 5-15 Blood Urea Nitrogen 49 H 9-23 mg/dL Creatinine 3.47 H 0.550-1.02 mg/dL Glomerular Filtration Rate Calc 13 >90 mL/min BUN/Creatinine Ratio 14.1 10.0-20.0 Serum Glucose 154 H 74-106 mg/dL Calcium Level 9.4 8.7-10.4 mg/dL Urine Color Light-brown Yellow Urine Clarity Ex.turbid Clear Urine pH 6.0 5.0-9.0 Urine Specific [place] 1.015 1.001-1.035 Urine Protein 2+ H Negative Urine Ketones Negative Negative Urine Blood 2+ H Negative /uL Urine Nitrite 2+ H Negative Urine Bilirubin Negative Negative Urine Urobilinogen Normal Negative mg/dL Urine Leukocyte Esterase 3+ Negative /uL Urine RBC 7 0 - 4 /hpf Urine WBC 3818 0 - 5 /hpf Urine WBC Clumps Present None Seen /hpf Urine Squamous Epithelial Cells None seen <5 /hpf Urine Bacteria None seen None Seen /hpf Urine Mucus Few None Seen Urine Yeast (Budding) Many None Seen /hpf Urine Glucose 3+ H Normal mg/dL Prothrombin Time 10.8 9.3-11.8 sec Prothrombin Time INR 1.02 0.9-1.15 Activated Partial Thromboplast Time 28.2 24.5-34.5 SEC Total Bilirubin 0.2 0.2-1.0 mg/dL Aspartate Amino Transferase (AST) 10 L 13-40 U/L Alanine Aminotransferase (ALT) < 9 7-40 U/L Alkaline Phosphatase 71 46-116 U/L Total Protein 5.5 L 5.7-8.2 g/dL Albumin 3.1 L 3.2-4.8 g/dL Lipase 115 H 12-53 U/L Plan/Recommendation 78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 At this point patient can be mobilized as tolerated 2. no plans for any surgery 3. PT 4. resume normal activities at her baseline Plan discussed with: Patient LYNDSEY HERRERA MD Jul 29, 2024 06:46
[2024-07-29] MEDS: DOCUSATE SOD 100 MG CAP PO SCH (09:30)
[2024-07-29] MEDS: NIFEdipine ER 30 MG TAB PO SCH (09:31)
[2024-07-29 11:04] LABS: Basophils # (auto) 0 10 ^3/uL (0-0.2); Basophils % (auto) 0.6 % (0.0-2.0); Eosinophils # (auto) 0.2 10 ^3/uL (0-0.8); Eosinophils % (auto) 4.7 % (0.0-7.0); Hematocrit 27.5 % (36.0-46.0); Hemoglobin 8.8 g/dL (12.2-16.2); Lymphocytes # (auto) 1.1 10 ^3/uL (0.4-5.4); Lymphocytes % (auto) 25.5 % (10.0-50.0); Mean Corpuscular Hemoglobin 31.3 pg (28.0-32.0); Mean Corpuscular Hgb Conc. 31.8 g/dL (32.0-36.0); Mean Corpuscular Volume 98.1 fL (80.0-100.0); Monocytes # (auto) 0.1 10 ^3/uL (0-1.3); Monocytes % (auto) 2.5 % (0.0-12.0); Neutrophils # (auto) 2.8 10 ^3/uL (1.6-8.6); Neutrophils % (auto) 66.7 % (37.0-80.0); Nucleated Red Blood Cells % 0.3 %; Platelet Count (auto) 303 10^3/uL (140-450); Red Blood Cells 2.81 10^6/uL (4.0-5.20); Red Cell Distribution Width 16.5 % (11.8-14.3); White Blood Cell 4.2 10^3/uL (4.4-10.8)
[2024-07-29 11:16] LABS: Anion Gap 10 (5-15); Potassium 4.3 mmol/L (3.5-5.1); Sodium 137 mmol/L (136-145)
[2024-07-29 11:17] LABS: Calcium 9.2 mg/dL (8.7-10.4)
[2024-07-29 11:19] LABS: Carbon Dioxide 20 mmol/L (20-31); Chloride 107 mmol/L (98-107)
[2024-07-29 11:22] LABS: BUN/Creatinine Ratio 13.2 (10.0-20.0); Glucose 87 mg/dL (74-106)
[2024-07-29 11:25] LABS: Blood Urea Nitrogen 47 mg/dL (9-23)
[2024-07-29 12:22] LABS: Lipase 65 U/L (12-53)
--- NOTE | 2024-07-29 16:27 | DVHPN2 ---
Progress Note - Dictate Date Seen: Jul 29, 2024 Medical Necessity Reason Pt with a Central, PICC or Fol: No Subjective No new complaints Pt had a medium-sized bowel movement today Nurse reports no bleeding; hemoglobin down to 8.8 Lipase level down to 65 On IV antibiotics for suspected Patient has underlying chronic renal insufficiency and currently has a UTI Patient has been seen by orthopedic consult and no surgery is planned vital signs Vital Sign Date Time Temp Pulse Resp B/P (MAP) Pulse Ox O2 Delivery O2 Flow Rate FiO2 07/29/24 09:40 97.9 89 16 140/69 (92) 97 97.9 07/29/24 08:17 Nasal Cannula* 2 28 Total Intake and Output 07/28/24 07/28/24 07/29/24 15:00 23:00 07:00 Intake Total 100 ml 250 ml 0 ml Output Total 175 ml 125 ml Balance 100 ml 75 ml -125 ml medications Current Medications Medications Dose Ordered Sig/Anthony Route Start Time Stop Time Status Last Admin Dose Admin Acetaminophen 650 mg Q6HP PRN PO 07/28/24 05:30 Ondansetron HCl 4 mg Q4HP PRN IV 07/28/24 05:30 Nitroglycerin 0.4 mg Q5MINP PRN SL 07/28/24 05:30 Morphine Sulfate 2 mg Q30M PRN IV 07/28/24 05:30 Psyllium Hydrophilic Mucilloid 1 pkg BID PO 07/28/24 10:00 07/29/24 09:31 1 PKG Ceftriaxone Sodium 50 ml @ 100 mls/hr Q24H IV 07/29/24 03:00 07/29/24 03:55 100 MLS/HR Diagnostic Test (Pha) 1 strip ACHS 07/28/24 07:00 07/29/24 11:24 1 STRIP Insulin Human Regular ACHS SC 07/28/24 07:00 07/28/24 06:58 2 UNITS Dextrose 50 ml UD PRN IV 07/28/24 06:45 Nifedipine 30 mg DAILY PO 07/29/24 10:00 07/29/24 09:31 30 MG Atorvastatin Calcium 20 mg HS PO 07/28/24 22:00 07/28/24 21:58 20 MG Hydralazine HCl 10 mg Q6HP PRN IV 07/28/24 17:15 Docusate Sodium 100 mg BID PO 07/29/24 10:00 07/29/24 09:30 100 MG objective General Appearance: Alert, Oriented X3, Cooperative, mild distress, thin cachectic lady chronically ill-appearing HEENT: Atraumatic, PERRLA, EOMI Respiratory: Clear to auscultation, Normal air movement Cardiovascular: Regular rate, Normal S1, Normal S2 Abdominal: Soft, Other (Diffuse Tenderness to left lower quadrant) Extremities: No clubbing, No cyanosis, No edema Skin: No rashes, No breakdown Neuro: Normal speech Psych/Mental Status: Mental status NL, Mood NL laboratory and microbiology Laboratory Tests 07/29/24 09:50 Test 07/29/24 09:50 Range/Units Serum Glucose 87 74-106 mg/dL Problems(with codes): (1) Acute on chronic renal insufficiency (2) Anemia in chronic kidney disease (3) Anemia of chronic disease (4) Abnormal finding on GI tract imaging (5) Pancreatitis (6) Cholelithiasis (7) Stercoral colitis Prognosis Plan Continue supportive care IV fluid hydration IV antibiotics Advance diet as tolerated Stool softeners daily MiraLax as needed Patient does not appear to be medically stable for a colonoscopy Mobilize as tolerated I will follow up patient with you Plan discussed with: Patient, Other (Nurse) WILFRID GARCIA MD Jul 29, 2024 16:27
--- NOTE | 2024-07-29 17:16 | DVHPN2 ---
Subjective Overnight events noted. This is a follow up on 78-year-old female with a known history of chronic right hip fracture four months, recent C7 fracture currently on cervical collar , chronic indwelling Treviño catheter, bed-bound status initially presented to hospital with lower abdominal pain and blood per rectum found to have bleeding per rectum with stercoral colitis. Patient's family member at bedside who is requesting to stay in the Treviño catheter as last time it was changed was four months ago. Reviewed: Care Plan Changes from previous H/P or p: No Changes Eyes: No Pain, No Vision change, No Conjunctivae inflammation, No Eyelid inflammation, No Other, No Redness ENT: No Ear pain, No Ear discharge, No Nose pain, No Nose discharge, No Nose congestion, No Mouth pain, No Mouth swelling, No Throat pain, No Throat swelling, No Other Cardiovascular: No Chest Pain, No Palpitations, No Orthopnea, No Paroxysmal Noc. Dyspnea, No Edema, No Lt Headedness, No Other Respiratory: No Cough, No Dry, No Shortness of breath, No SOB with excertion, No Wheezing, No Hemoptysis, No Pleuritic Pain, No Sputum, No Other Gastrointestinal: No Nausea, No Vomiting; Abdominal Pain; No Diarrhea; C onstipation; No Melena; Hematochezia; No Other Genitourinary: No Dysuria, No Frequency, No Incontinence, No Hematuria, No Retention, No Other Musculoskeletal: No other, No neck pain, No shoulder pain, No arm pain, No back pain, No hand pain, No leg pain, No foot pain Skin: No Rash, No Lesions, No Jaundice, No Bruising, No Other Objective Vitals Vital Signs Date Time Temp Pulse Resp B/P (MAP) Pulse Ox O2 Delivery O2 Flow Rate FiO2 07/29/24 09:40 97.9 89 16 140/69 (92) 97 97.9 07/29/24 08:17 Nasal Cannula* 2 28 Intake/Output Intake and Output 07/29/24 07:00 Intake Total 350 ml Output Total 300 ml Balance 50 ml Intake Oral 0 ml IV Total 350 ml Output Urine Total 300 ml # Bowel Movements 1 Exam HEENT pupils are reactive, Neck has cervical collar CV is S1-S2 regular rate and rhythm Respiratory bilateral clear GI positive bowel sound Extremity no edema 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 is bed-bound status Medications Current Medications Medications Dose Ordered Sig/Anthony Route Start Time Stop Time Status Last Admin Dose Admin Acetaminophen 650 mg Q6HP PRN PO 07/28/24 05:30 Ondansetron HCl 4 mg Q4HP PRN IV 07/28/24 05:30 Nitroglycerin 0.4 mg Q5MINP PRN SL 07/28/24 05:30 Morphine Sulfate 2 mg Q30M PRN IV 07/28/24 05:30 Psyllium Hydrophilic Mucilloid 1 pkg BID PO 07/28/24 10:00 07/29/24 09:31 1 PKG Ceftriaxone Sodium 50 ml @ 100 mls/hr Q24H IV 07/29/24 03:00 07/29/24 03:55 100 MLS/HR Diagnostic Test (Pha) 1 strip ACHS 07/28/24 07:00 07/29/24 11:24 1 STRIP Insulin Human Regular ACHS SC 07/28/24 07:00 07/28/24 06:58 2 UNITS Dextrose 50 ml UD PRN IV 07/28/24 06:45 Nifedipine 30 mg DAILY PO 07/29/24 10:00 07/29/24 09:31 30 MG Atorvastatin Calcium 20 mg HS PO 07/28/24 22:00 07/28/24 21:58 20 MG Hydralazine HCl 10 mg Q6HP PRN IV 07/28/24 17:15 Docusate Sodium 100 mg BID PO 07/29/24 10:00 07/29/24 09:30 100 MG Laboratory Results Laboratory Tests 07/29/24 09:50 Chemistry Test 07/29/24 09:50 Calcium Level 9.2 mg/dL (8.7-10.4) Lipid panel Test 07/29/24 09:50 Lipase 65 U/L (12-53) H HgA1c, TSH Test 07/29/24 09:50 Thyroid Stimulating Hormone (TSH) 1.17 uIU/mL (0.55-4.78) Urinalysis Test 07/28/24 00:35 Urine Color Light-brown (Yellow) Urine Clarity Ex.turbid (Clear) Urine pH 6.0 (5.0-9.0) Urine Specific [place] 1.015 (1.001-1.035) Urine Protein 2+ (Negative) H Urine Ketones Negative (Negative) Urine Blood 2+ /uL (Negative) H Urine Nitrite 2+ (Negative) H Urine Bilirubin Negative (Negative) Urine Urobilinogen Normal mg/dL (Negative) Urine Leukocyte Esterase 3+ /uL (Negative) Urine RBC 7 /hpf (0 - 4) Urine WBC 3818 /hpf (0 - 5) Urine WBC Clumps Present /hpf (None Seen) Urine Squamous Epithelial Cells None seen /hpf (<5) Urine Bacteria None seen /hpf (None Seen) Urine Mucus Few (None Seen) Urine Yeast (Budding) Many /hpf (None Seen) Urine Glucose 3+ mg/dL (Normal) H Assessment/Plan Assessment/Plan This is a follow up on 78-year-old female with a known history of chronic right hip fracture four months, recent C7 fracture currently on cervical collar , chronic indwelling Treviño catheter, bed-bound status initially presented to hospital with lower abdominal pain and blood per rectum found to have 1. Acute kidney injury with underlying CKD 2. Bleeding per rectum currently resolved 3. Stercoral colitis 4. Anemia of chronic disease 5. Urinary tract infection 6. Chronic indwelling Treviño catheter 7. C7 cervical fracture currently in cervical collar 8. Chronic right hip fracture with a bed-bound status -change Treviño catheter, send clean-catch urine for UA and urine culture , Infectious Disease consultation. -discharge plan Plan discussed with: Patient, Other My Orders Orders - SANDHYA JOHNSON MD Procedure Category Date Status Time * Instructor [employer] CONS 07/29/24 Transmitted Consult Urine Bacterial ADELA 07/29/24 Logged Culture 16:35 Date of Service: Jul 29, 2024 Billing Provider: SANDHYA JOHNSON MD Common Visit Codes: NOT BILLABLE SANDHYA JOHNSON MD Jul 29, 2024 17:16
--- NOTE | 2024-07-29 17:48 | DVHINCON2 ---
Date of service: Jul 29, 2024 Referring Physician Roberto Pena NP Reason for Consultation CHASITY History of Present Illness Mrs. Garcia is a 78-year-old female with known history of Chronic right hip fracture, C7 fracture diabetes and history of underlying chronic kidney disease presented for further evaluation and management of abdominal discomfort and hematochezia. She was seen earlier today and was in no acute distress. Current consultation requested for ongoing monitoring of her kidney function. Serum creatinine has been in the 3 range. Past Medical History diabetes Hypertension Chronic kidney disease C7 fracture Allergies: Coded Allergies: No Known Drug Allergy (Verified Allergy, Unknown, 07/27/24) Home Meds Reported Medications Nifedipine (Nifedipine Er) 30 Mg Tab, 1 TAB PO DAILY 07/28/24 Atorvastatin Calcium (ATORVASTATIN CALCIUM) 20 Mg Tab, 1 TAB PO DAILY 07/28/24 Losartan Potassium (Losartan Potassium) 50 Mg Tab, 1 TAB PO DAILY 07/28/24 Metformin Hydrochloride (Metformin Hcl) 1,000 Mg Tab, 1 TAB PO DAILY 07/28/24 Sevelamer Carbonate (Sevelamer Carbonate) 0.8 Gm Pow, 3 PO TID 07/28/24 Oxycodone W/ Acetaminophen (Apap/Oxycodone) 1 Tab Tab, 1 TAB PO BID, TAB 07/28/24 Albuterol Sulfate (Albuterol Sulfate Hfa) 108 Mcg/Act Aer, INH 07/28/24 Docusate Sodium (Docusate Sodium) 100 Mg Cap, 1 CAP PO BID 07/28/24 Current Medications Current Medications Medications (Trade) Dose Ordered Sig/Anthony Route PRN Reason Start Time Stop Time Status Last Admin Ceftriaxone Sodium 50 ml @ 100 mls/hr Q24H IV 07/29/24 03:00 07/29/24 03:55 Nifedipine (Procardia Xl (Time-Release)) 30 mg DAILY PO 07/29/24 10:00 07/29/24 09:31 Atorvastatin Calcium (Lipitor) 20 mg HS PO 07/28/24 22:00 07/28/24 21:58 Docusate Sodium (Colace Capsule) 100 mg BID PO 07/29/24 10:00 07/29/24 09:30 Family History: Patient reports no known family medical history. Review of Systems denies hemoptysis H&P Exam Vital Signs/I&O Vital Sign Date Time Temp Pulse Resp B/P (MAP) Pulse Ox O2 Delivery O2 Flow Rate FiO2 07/29/24 17:17 97.9 83 18 129/80 (96) 99 97.9 07/29/24 08:17 Nasal Cannula* 2 28 Intake and Output 07/28/24 07/29/24 19:00 07:00 Intake Total 350 ml 0 ml Output Total 175 ml 125 ml Balance 175 ml -125 ml Intake Oral 0 ml IV Total 350 ml Output Urine Total 175 ml 125 ml # Bowel Movements 1 Physical Exam gen: nad heent: nc lungs: cta cvs: no rub abd: soft ext: no edema skin: no rash neuro: Awake and alert Labs/Diagnostic Data Labs/Diagnostic Data Laboratory Tests Test 07/29/24 17:16 07/29/24 11:00 07/29/24 09:50 07/29/24 06:36 Range/Units POC Glucose 90 94 89 70-106 mg/dl White Blood Count 4.2 L 4.4-10.8 10^3/uL Red Blood Count 2.81 L 4.0-5.20 10^6/uL Hemoglobin 8.8 L 12.2-16.2 g/dL Hematocrit 27.5 L 36.0-46.0 % Mean Corpuscular Volume 98.1 # 80.0-100.0 fL Mean Corpuscular Hemoglobin 31.3 28.0-32.0 pg Mean Corpuscular Hemoglobin Concent 31.8 L 32.0-36.0 g/dL Red Cell Distribution Width 16.5 H 11.8-14.3 % Platelet Count 303 140-450 10^3/uL Mean Platelet Volume 7.1 6.9-10.8 fL Neutrophils (%) (Auto) 66.7 37.0-80.0 % Lymphocytes (%) (Auto) 25.5 10.0-50.0 % Monocytes (%) (Auto) 2.5 0.0-12.0 % Eosinophils (%) (Auto) 4.7 0.0-7.0 % Basophils (%) (Auto) 0.6 0.0-2.0 % Neutrophils # (Auto) 2.8 1.6-8.6 10 ^3/uL Lymphocytes # (Auto) 1.1 0.4-5.4 10 ^3/uL Monocytes # (Auto) 0.1 0-1.3 10 ^3/uL Eosinophils # (Auto) 0.2 0-0.8 10 ^3/uL Basophils # (Auto) 0 0-0.2 10 ^3/uL Nucleated Red Blood Cells 0.3 % Sodium Level 137 136-145 mmol/L Potassium Level 4.3 3.5-5.1 mmol/L Chloride Level 107 98-107 mmol/L Carbon Dioxide Level 20 20-31 mmol/L Anion Gap 10 5-15 Blood Urea Nitrogen 47 H 9-23 mg/dL Creatinine 3.55 H 0.550-1.02 mg/dL Glomerular Filtration Rate Calc 13 >90 mL/min BUN/Creatinine Ratio 13.2 10.0-20.0 Serum Glucose 87 74-106 mg/dL Calcium Level 9.2 8.7-10.4 mg/dL Lipase 65 H 12-53 U/L Thyroid Stimulating Hormone (TSH) 1.17 0.55-4.78 uIU/mL Test 07/28/24 21:33 07/28/24 17:18 07/28/24 15:43 07/28/24 11:40 Range/Units POC Glucose 115 H 131 H 132 H 70-106 mg/dl White Blood Count 4.7 4.4-10.8 10^3/uL Red Blood Count 2.93 L 4.0-5.20 10^6/uL Hemoglobin 9.1 L 12.2-16.2 g/dL Hematocrit 27.3 L 36.0-46.0 % Mean Corpuscular Volume 93.1 80.0-100.0 fL Mean Corpuscular Hemoglobin 31.2 28.0-32.0 pg Mean Corpuscular Hemoglobin Concent 33.5 32.0-36.0 g/dL Red Cell Distribution Width 16.3 H 11.8-14.3 % Platelet Count 277 140-450 10^3/uL Mean Platelet Volume 6.9 6.9-10.8 fL Neutrophils (%) (Auto) 75.6 37.0-80.0 % Lymphocytes (%) (Auto) 20.6 10.0-50.0 % Monocytes (%) (Auto) 2.0 0.0-12.0 % Eosinophils (%) (Auto) 1.3 0.0-7.0 % Basophils (%) (Auto) 0.5 0.0-2.0 % Neutrophils # (Auto) 3.5 1.6-8.6 10 ^3/uL Lymphocytes # (Auto) 1.0 0.4-5.4 10 ^3/uL Monocytes # (Auto) 0.1 0-1.3 10 ^3/uL Eosinophils # (Auto) 0.1 0-0.8 10 ^3/uL Basophils # (Auto) 0 0-0.2 10 ^3/uL Nucleated Red Blood Cells 0.1 % Sodium Level 136 136-145 mmol/L Potassium Level 4.5 3.5-5.1 mmol/L Chloride Level 106 98-107 mmol/L Carbon Dioxide Level 21 20-31 mmol/L Anion Gap 9 5-15 Blood Urea Nitrogen 49 H 9-23 mg/dL Creatinine 3.47 H 0.550-1.02 mg/dL Glomerular Filtration Rate Calc 13 >90 mL/min BUN/Creatinine Ratio 14.1 10.0-20.0 Serum Glucose 154 H 74-106 mg/dL Calcium Level 9.4 8.7-10.4 mg/dL Test 07/28/24 06:55 07/28/24 00:35 07/27/24 22:46 Range/Units POC Glucose 140 H 70-106 mg/dl Urine Color Light-brown Yellow Urine Clarity Ex.turbid Clear Urine pH 6.0 5.0-9.0 Urine Specific [place] 1.015 1.001-1.035 Urine Protein 2+ H Negative Urine Ketones Negative Negative Urine Blood 2+ H Negative /uL Urine Nitrite 2+ H Negative Urine Bilirubin Negative Negative Urine Urobilinogen Normal Negative mg/dL Urine Leukocyte Esterase 3+ Negative /uL Urine RBC 7 0 - 4 /hpf Urine WBC 3818 0 - 5 /hpf Urine WBC Clumps Present None Seen /hpf Urine Squamous Epithelial Cells None seen <5 /hpf Urine Bacteria None seen None Seen /hpf Urine Mucus Few None Seen Urine Yeast (Budding) Many None Seen /hpf Urine Glucose 3+ H Normal mg/dL White Blood Count 4.9 4.4-10.8 10^3/uL Red Blood Count 3.04 L 4.0-5.20 10^6/uL Hemoglobin 9.6 L 12.2-16.2 g/dL Hematocrit 28.2 L 36.0-46.0 % Mean Corpuscular Volume 92.7 80.0-100.0 fL Mean Corpuscular Hemoglobin 31.6 28.0-32.0 pg Mean Corpuscular Hemoglobin Concent 34.0 32.0-36.0 g/dL Red Cell Distribution Width 16.4 H 11.8-14.3 % Platelet Count 285 140-450 10^3/uL Mean Platelet Volume 6.9 6.9-10.8 fL Neutrophils (%) (Auto) 77.4 37.0-80.0 % Lymphocytes (%) (Auto) 18.7 10.0-50.0 % Monocytes (%) (Auto) 1.8 0.0-12.0 % Eosinophils (%) (Auto) 1.4 0.0-7.0 % Basophils (%) (Auto) 0.7 0.0-2.0 % Neutrophils # (Auto) 3.8 1.6-8.6 10 ^3/uL Lymphocytes # (Auto) 0.9 0.4-5.4 10 ^3/uL Monocytes # (Auto) 0.1 0-1.3 10 ^3/uL Eosinophils # (Auto) 0.1 0-0.8 10 ^3/uL Basophils # (Auto) 0 0-0.2 10 ^3/uL Nucleated Red Blood Cells 0.1 % Prothrombin Time 10.8 9.3-11.8 sec Prothrombin Time INR 1.02 0.9-1.15 Activated Partial Thromboplast Time 28.2 24.5-34.5 SEC Sodium Level 137 136-145 mmol/L Potassium Level 4.2 3.5-5.1 mmol/L Chloride Level 106 98-107 mmol/L Carbon Dioxide Level 22 20-31 mmol/L Anion Gap 9 5-15 Blood Urea Nitrogen 49 H 9-23 mg/dL Creatinine 3.39 H 0.550-1.02 mg/dL Glomerular Filtration Rate Calc 13 >90 mL/min BUN/Creatinine Ratio 14.5 10.0-20.0 Serum Glucose 202 H 74-106 mg/dL Calcium Level 9.5 8.7-10.4 mg/dL Total Bilirubin 0.2 0.2-1.0 mg/dL Aspartate Amino Transferase (AST) 10 L 13-40 U/L Alanine Aminotransferase (ALT) < 9 7-40 U/L Alkaline Phosphatase 71 46-116 U/L Total Protein 5.5 L 5.7-8.2 g/dL Albumin 3.1 L 3.2-4.8 g/dL Lipase 115 H 12-53 U/L Assessment IMP: 1) hemodynamically mediated acute kidney injury and vasomotor nephropathy 2) hematochezia 3) chronic right hip fracture 4) diabetes 5) CKD IIIb REC: - Agree with holding ARB - may consider rechallenge once CHASITY has improved - Avoidance of NSAIDs / IV contrast studies if able - Agree with IV fluids - clinically stable for discharge with outpatient follow-up in CKD clinic. Plan discussed with: Other NITHYA GARCIA MD Jul 29, 2024 17:48
[2024-07-29] MEDS: SOD CHL 0.45% 1,000 ML IV ONE (18:19)
--- NOTE | 2024-07-29 21:05 | DVHINCON2 ---
Date of service: Aug 05, [address] Boone History of Present Illness This is a 78 female patient who presents to the hospital with past medical history of C7 fracture, chronic right hip fracture, asthma, DM, CKD, presents with complaints of lower abdominal pain and bright red blood per rectum x1 day. Patient is bed-bound. Abdomen is tender in the left lower quadrant. Sister states the patient was having bowel movement and bright red blood and clot was removed from the rectum. During the emergency department evaluation CT abdomen and pelvis was positive for stercoral colitis and had demonstration of the right hip fracture vs osteomyelitis. Patient and patient sister confirmed Right hip has chronic fracture for Which the patient chose not to have Surgery. Past Medical History Cardiovascular: hyperipidemia Pulmonary: Asthma Musculoskeletal: Chronic low back pain Renal/: Chronic renal insuff Past Surgical History None Family History: Patient reports no known family medical history. Family History Lives: with Family Social History Smoke: No ALCOHOL: none Drugs: None Allergies: Coded Allergies: No Known Drug Allergy (Verified Allergy, Unknown, 07/27/24) Allergies None Home Meds Reported Medications Nifedipine (Nifedipine Er) 30 Mg Tab, 1 TAB PO DAILY 07/28/24 Atorvastatin Calcium (ATORVASTATIN CALCIUM) 20 Mg Tab, 1 TAB PO DAILY 07/28/24 Metformin Hydrochloride (Metformin Hcl) 1,000 Mg Tab, 1 TAB PO DAILY 07/28/24 Sevelamer Carbonate (Sevelamer Carbonate) 0.8 Gm Pow, 3 PO TID 07/28/24 Oxycodone W/ Acetaminophen (Apap/Oxycodone) 1 Tab Tab, 1 TAB PO BID, TAB 07/28/24 Albuterol Sulfate (Albuterol Sulfate Hfa) 108 Mcg/Act Aer, INH 07/28/24 Docusate Sodium (Docusate Sodium) 100 Mg Cap, 1 CAP PO BID 07/28/24 Discontinued Reported Medications Losartan Potassium (Losartan Potassium) 50 Mg Tab, 1 TAB PO DAILY 07/28/24 Current Medications Current Medications Medications (Trade) Dose Ordered Sig/Anthony Route PRN Reason Start Time Stop Time Status Last Admin Ceftriaxone Sodium 50 ml @ 100 mls/hr Q24H IV 07/29/24 03:00 07/29/24 03:55 Nifedipine (Procardia Xl (Time-Release)) 30 mg DAILY PO 07/29/24 10:00 07/29/24 09:31 Atorvastatin Calcium (Lipitor) 20 mg HS PO 07/28/24 22:00 07/28/24 21:58 Docusate Sodium (Colace Capsule) 100 mg BID PO 07/29/24 10:00 07/29/24 09:30 Review of Systems Constitutional: No: Fever, Chills, Sweats, Weakness, Malaise, Other Eyes: No: Pain, Vision change, Conjunctivae inflammation, Eyelid inflammation, Other, Redness ENT: No: Ear pain, Ear discharge, Nose pain, Nose discharge, Nose congestion, Mouth pain, Mouth swelling, Throat pain, Throat swelling, Other Respiratory: No: Cough, Dry, Shortness of breath, SOB with excertion, Wheezing, Hemoptysis, Pleuritic Pain, Sputum, Wheezing, Other Cardiovascular: No: Chest Pain, Palpitations, Orthopnea, Paroxysmal Noc. Dyspnea, Edema, Lt Headedness, Other Gastrointestinal: Abdominal Pain, Constipation, Hematochezia; No: Nausea, Vomiting, Diarrhea, Melena, Other Genitourinary: No Dysuria, No Frequency, No Incontinence, No Hematuria, No Retention, No Other Musculoskeletal: No: other, neck pain, shoulder pain, arm pain, back pain, hand pain, leg pain, foot pain Skin: No: Rash, Lesions, Jaundice, Bruising, Other Neurological: No: Weakness, Numbness, Incoordination, Change in speech, Confusion, Seizures, Other Vital Signs Vital Signs Date Time Temp Pulse Resp B/P (MAP) Pulse Ox O2 Delivery O2 Flow Rate FiO2 07/29/24 17:17 97.9 83 18 129/80 (96) 99 97.9 07/29/24 08:17 Nasal Cannula* 2 28 Physical Exam General Appearance: Alert, Oriented X3, Cooperative, mild distress HEENT: Atraumatic, PERRLA, EOMI Respiratory: Clear to auscultation, Normal air movement Cardiovascular: Regular rate, Normal S1, Normal S2 Abdominal: Soft, Other (Diffuse Tenderness to left lower quadrant) Extremities: No clubbing, No cyanosis, No edema Skin: No rashes, No breakdown Neuro: Normal speech Psych/Mental Status: Mental status NL, Mood NL Labs/Diagnostic Data Labs Test 07/29/24 17:16 07/29/24 09:50 07/28/24 00:35 07/27/24 22:46 Range/Units POC Glucose 90 70-106 mg/dl White Blood Count 4.2 L 4.4-10.8 10^3/uL Red Blood Count 2.81 L 4.0-5.20 10^6/uL Hemoglobin 8.8 L 12.2-16.2 g/dL Hematocrit 27.5 L 36.0-46.0 % Mean Corpuscular Volume 98.1 # 80.0-100.0 fL Mean Corpuscular Hemoglobin 31.3 28.0-32.0 pg Mean Corpuscular Hemoglobin Concent 31.8 L 32.0-36.0 g/dL Red Cell Distribution Width 16.5 H 11.8-14.3 % Platelet Count 303 140-450 10^3/uL Mean Platelet Volume 7.1 6.9-10.8 fL Neutrophils (%) (Auto) 66.7 37.0-80.0 % Lymphocytes (%) (Auto) 25.5 10.0-50.0 % Monocytes (%) (Auto) 2.5 0.0-12.0 % Eosinophils (%) (Auto) 4.7 0.0-7.0 % Basophils (%) (Auto) 0.6 0.0-2.0 % Neutrophils # (Auto) 2.8 1.6-8.6 10 ^3/uL Lymphocytes # (Auto) 1.1 0.4-5.4 10 ^3/uL Monocytes # (Auto) 0.1 0-1.3 10 ^3/uL Eosinophils # (Auto) 0.2 0-0.8 10 ^3/uL Basophils # (Auto) 0 0-0.2 10 ^3/uL Nucleated Red Blood Cells 0.3 % Sodium Level 137 136-145 mmol/L Potassium Level 4.3 3.5-5.1 mmol/L Chloride Level 107 98-107 mmol/L Carbon Dioxide Level 20 20-31 mmol/L Anion Gap 10 5-15 Blood Urea Nitrogen 47 H 9-23 mg/dL Creatinine 3.55 H 0.550-1.02 mg/dL Glomerular Filtration Rate Calc 13 >90 mL/min BUN/Creatinine Ratio 13.2 10.0-20.0 Serum Glucose 87 74-106 mg/dL Calcium Level 9.2 8.7-10.4 mg/dL Lipase 65 H 12-53 U/L Thyroid Stimulating Hormone (TSH) 1.17 0.55-4.78 uIU/mL Urine Color Light-brown Yellow Urine Clarity Ex.turbid Clear Urine pH 6.0 5.0-9.0 Urine Specific [place] 1.015 1.001-1.035 Urine Protein 2+ H Negative Urine Ketones Negative Negative Urine Blood 2+ H Negative /uL Urine Nitrite 2+ H Negative Urine Bilirubin Negative Negative Urine Urobilinogen Normal Negative mg/dL Urine Leukocyte Esterase 3+ Negative /uL Urine RBC 7 0 - 4 /hpf Urine WBC 3818 0 - 5 /hpf Urine WBC Clumps Present None Seen /hpf Urine Squamous Epithelial Cells None seen <5 /hpf Urine Bacteria None seen None Seen /hpf Urine Mucus Few None Seen Urine Yeast (Budding) Many None Seen /hpf Urine Glucose 3+ H Normal mg/dL Prothrombin Time 10.8 9.3-11.8 sec Prothrombin Time INR 1.02 0.9-1.15 Activated Partial Thromboplast Time 28.2 24.5-34.5 SEC Total Bilirubin 0.2 0.2-1.0 mg/dL Aspartate Amino Transferase (AST) 10 L 13-40 U/L Alanine Aminotransferase (ALT) < 9 7-40 U/L Alkaline Phosphatase 71 46-116 U/L Total Protein 5.5 L 5.7-8.2 g/dL Albumin 3.1 L 3.2-4.8 g/dL Assessment A 78-female patient who presents to the hospital with UTI Chronic right femoral neck fracture Lower GI bleed Stercoral colitis DM CKD Hx C7 fracture YANNICK GUILLERMO MD Jul 29, 2024 21:05
[2024-07-30] VITALS (7 sets, daily range): BP systolic 120–130; BP diastolic 63–70; PULSE 79–93; RESP 16–20; TEMP 36.2; O2SAT 98–100
[2024-07-30] MEDS: ACETAMINOPHEN 325 MG TAB PO PRN (04:25)
[2024-07-30 08:37] LABS: Basophils # (auto) 0 10 ^3/uL (0-0.2); Basophils % (auto) 0.6 % (0.0-2.0); Eosinophils # (auto) 0.2 10 ^3/uL (0-0.8); Eosinophils % (auto) 3.8 % (0.0-7.0); Hematocrit 26.6 % (36.0-46.0); Hemoglobin 9.1 g/dL (12.2-16.2); Lymphocytes % (auto) 24.7 % (10.0-50.0); Mean Corpuscular Hemoglobin 31.4 pg (28.0-32.0); Mean Corpuscular Volume 92.3 fL (80.0-100.0); Monocytes # (auto) 0.1 10 ^3/uL (0-1.3); Monocytes % (auto) 2.7 % (0.0-12.0); Neutrophils # (auto) 2.9 10 ^3/uL (1.6-8.6); Neutrophils % (auto) 68.2 % (37.0-80.0); Nucleated Red Blood Cells % 0.1 %; Platelet Count (auto) 285 10^3/uL (140-450); Red Blood Cells 2.88 10^6/uL (4.0-5.20); Red Cell Distribution Width 15.6 % (11.8-14.3); White Blood Cell 4.2 10^3/uL (4.4-10.8)
[2024-07-30 09:05] LABS: Chloride 105 mmol/L (98-107); Potassium 4.3 mmol/L (3.5-5.1)
[2024-07-30 09:06] LABS: Anion Gap 10 (5-15); Calcium 9.3 mg/dL (8.7-10.4)
[2024-07-30 09:11] LABS: BUN/Creatinine Ratio 15.4 (10.0-20.0); Glucose 96 mg/dL (74-106)
[2024-07-30 09:12] LABS: Blood Urea Nitrogen 54 mg/dL (9-23); Carbon Dioxide 20 mmol/L (20-31); Magnesium 1.8 mg/dL (1.6-2.6); Sodium 135 mmol/L (136-145)
[2024-07-30 13:50] LABS: % Iron Saturation 32.4 % (15-50)
[2024-07-30 14:05] LABS: Carcinoembryonic Antigen 2.32 ng/mL (<=5.0); Folate (Folic Acid) 3.21 ng/mL (>5.38)
[2024-07-30 14:06] LABS: Ferritin 504.4 ng/mL (10-291)
--- NOTE | 2024-07-30 16:58 | DVHPN2 ---
Progress Note Date Seen: Jul 30, 2024 Medical Necessity Reason Pt with a Central, PICC or Fol: No Subjective Other Systems: Neck collar Objective vital signs Vital Sign Date Time Temp Pulse Resp B/P (MAP) Pulse Ox O2 Delivery O2 Flow Rate FiO2 07/30/24 13:00 97.1 79 17 127/67 (87) 99 97.1 07/29/24 19:30 Nasal Cannula* 2 28 Total Intake and Output 07/29/24 07/29/24 07/30/24 15:00 23:00 07:00 Intake Total 220 ml 400 ml Output Total 600 ml 650 ml Balance -380 ml -250 ml medications Current Medications Medications Dose Ordered Sig/Anthony Route Start Time Stop Time Status Last Admin Dose Admin Acetaminophen 650 mg Q6HP PRN PO 07/28/24 05:30 07/30/24 12:24 650 MG Ondansetron HCl 4 mg Q4HP PRN IV 07/28/24 05:30 Nitroglycerin 0.4 mg Q5MINP PRN SL 07/28/24 05:30 Morphine Sulfate 2 mg Q30M PRN IV 07/28/24 05:30 Psyllium Hydrophilic Mucilloid 1 pkg BID PO 07/28/24 10:00 07/30/24 11:17 1 PKG Ceftriaxone Sodium 50 ml @ 100 mls/hr Q24H IV 07/29/24 03:00 07/30/24 03:00 100 MLS/HR Diagnostic Test (Pha) 1 strip ACHS 07/28/24 07:00 07/30/24 11:45 1 STRIP Insulin Human Regular ACHS SC 07/28/24 07:00 07/28/24 06:58 2 UNITS Dextrose 50 ml UD PRN IV 07/28/24 06:45 Nifedipine 30 mg DAILY PO 07/29/24 10:00 07/30/24 11:17 30 MG Atorvastatin Calcium 20 mg HS PO 07/28/24 22:00 07/29/24 22:00 20 MG Hydralazine HCl 10 mg Q6HP PRN IV 07/28/24 17:15 Docusate Sodium 100 mg BID PO 07/29/24 10:00 07/30/24 11:17 100 MG Examination: LUNGS:Normal, CVS:Normal, MSK:Normal laboratory and microbiology Laboratory Tests 07/30/24 07:59 Test 07/30/24 07:59 Range/Units Serum Glucose 96 74-106 mg/dL Microbiology Date/Time Source Procedure Growth Status 07/29/24 17:23 Urine - Midstream Clean Catch Urine Culture - Preliminary Resulted Problem List/Assessment/Plan Problem List/Assessment/Plan 1) hemodynamically mediated acute kidney injury and vasomotor nephropathy 2) hematochezia 3) chronic right hip fracture 4) diabetes 5) CKD IIIb REC: I discussed risks and benefits of HD with patient and sister, patient refused Conservative management Insulin SS Avoid nephrotoxins Plan discussed with: Patient, Other (sister) KRISTY GALICIA MD Jul 30, 2024 16:58
--- NOTE | 2024-07-30 17:05 | DVHDS2 ---
Discharge Summary Date of Admission Jul 28, 2024 at 05:28 Date of Discharge: Jul 30, 2024 Labs/Diagnostic Data: Laboratory Results Test 07/30/24 11:26 07/30/24 07:59 07/30/24 07:54 07/29/24 09:50 POC Glucose 82 mg/dl (70-106) White Blood Count 4.2 10^3/uL (4.4-10.8) Red Blood Count 2.88 10^6/uL (4.0-5.20) Hemoglobin 9.1 g/dL (12.2-16.2) Hematocrit 26.6 % (36.0-46.0) Mean Corpuscular Volume 92.3 fL (80.0-100.0) Mean Corpuscular Hemoglobin 31.4 pg (28.0-32.0) Mean Corpuscular Hemoglobin Concent 34.0 g/dL (32.0-36.0) Red Cell Distribution Width 15.6 % (11.8-14.3) Platelet Count 285 10^3/uL (140-450) Mean Platelet Volume 6.8 fL (6.9-10.8) Neutrophils (%) (Auto) 68.2 % (37.0-80.0) Lymphocytes (%) (Auto) 24.7 % (10.0-50.0) Monocytes (%) (Auto) 2.7 % (0.0-12.0) Eosinophils (%) (Auto) 3.8 % (0.0-7.0) Basophils (%) (Auto) 0.6 % (0.0-2.0) Neutrophils # (Auto) 2.9 10 ^3/uL (1.6-8.6) Lymphocytes # (Auto) 1.0 10 ^3/uL (0.4-5.4) Monocytes # (Auto) 0.1 10 ^3/uL (0-1.3) Eosinophils # (Auto) 0.2 10 ^3/uL (0-0.8) Basophils # (Auto) 0 10 ^3/uL (0-0.2) Nucleated Red Blood Cells 0.1 % Sodium Level 135 mmol/L (136-145) Potassium Level 4.3 mmol/L (3.5-5.1) Chloride Level 105 mmol/L (98-107) Carbon Dioxide Level 20 mmol/L (20-31) Anion Gap 10 (5-15) Blood Urea Nitrogen 54 mg/dL (9-23) Creatinine 3.50 mg/dL (0.550-1.02) Glomerular Filtration Rate Calc 13 mL/min (>90) BUN/Creatinine Ratio 15.4 (10.0-20.0) Serum Glucose 96 mg/dL (74-106) Calcium Level 9.3 mg/dL (8.7-10.4) Magnesium Level 1.8 mg/dL (1.6-2.6) Iron Level 57 ug/dL (50-170) Total Iron Binding Capacity 176 ug/dL (250-425) Percent Iron Saturation 32.4 % (15-50) Ferritin 504.4 ng/mL (10-291) Carcinoembryonic Antigen 2.32 ng/mL (<=5.0) Vitamin B12 Level 721 pg/mL (211-911) Folic Acid 3.21 ng/mL (>5.38) Lipase 65 U/L (12-53) Thyroid Stimulating Hormone (TSH) 1.17 uIU/mL (0.55-4.78) Test 07/28/24 00:35 07/27/24 22:46 Urine Color Light-brown (Yellow) Urine Clarity Ex.turbid (Clear) Urine pH 6.0 (5.0-9.0) Urine Specific [place] 1.015 (1.001-1.035) Urine Protein 2+ (Negative) Urine Ketones Negative (Negative) Urine Blood 2+ /uL (Negative) Urine Nitrite 2+ (Negative) Urine Bilirubin Negative (Negative) Urine Urobilinogen Normal mg/dL (Negative) Urine Leukocyte Esterase 3+ /uL (Negative) Urine RBC 7 /hpf (0 - 4) Urine WBC 3818 /hpf (0 - 5) Urine WBC Clumps Present /hpf (None Seen) Urine Squamous Epithelial Cells None seen /hpf (<5) Urine Bacteria None seen /hpf (None Seen) Urine Mucus Few (None Seen) Urine Yeast (Budding) Many /hpf (None Seen) Urine Glucose 3+ mg/dL (Normal) Prothrombin Time 10.8 sec (9.3-11.8) Prothrombin Time INR 1.02 (0.9-1.15) Activated Partial Thromboplast Time 28.2 SEC (24.5-34.5) Total Bilirubin 0.2 mg/dL (0.2-1.0) Aspartate Amino Transferase (AST) 10 U/L (13-40) Alanine Aminotransferase (ALT) < 9 U/L (7-40) Alkaline Phosphatase 71 U/L (46-116) Total Protein 5.5 g/dL (5.7-8.2) Albumin 3.1 g/dL (3.2-4.8) Other Laboratory Tests 07/30/24 07:59 Brief Hx & Hospital Course: This is a follow up on 78-year-old female with a known history of chronic right hip fracture four months, recent C7 fracture currently on cervical collar , chronic indwelling Alcocer catheter, bed-bound status initially presented to hospital with lower abdominal pain and blood per rectum found to have acute kidney injury with underlying CKD stage IVB. Patient also complaining of bleeding per rectum. Patient was diagnosed with stercoral colitis. Patient has SKILLED INDWELLING ALCOCER CATHETER WITH A BED-BOUND CONDITION WITH A PREVIOUS HISTORY OF CHRONIC RIGHT HIP FRACTURE. ALSO PATIENT HAS A RECENTLY C7 CERVICAL FRACTURE CURRENTLY IN A CERVICAL COLLAR. PATIENT WAS SEEN BY NEPHROLOGY AND RECOMMENDED TO BE ON DIALYSIS MOST LIKELY. PATIENT SAYS THAT SHE WILL DECIDE WITH THE FAMILY MEMBERS. PATIENT IS BEING DISCHARGED UNDER STABLE CONDITION WITH CLOSE FOLLOW UP AN OUTPATIENT WITH THE PCP AND NEPHROLOGY. PATIENT HAS URINARY TRACT CULTURE SHOWS FUNGAL BACTERIA WHICH IS LIKELY COLONIZATION. INFECTIOUS DISEASE CLEARED THE PATIENT TO BE DISCHARGED. Condition at Discharge: Stable Final Diagnosis/Problems List This is a follow up on 78-year-old female with a known history of chronic right hip fracture four months, recent C7 fracture currently on cervical collar , chronic indwelling Alcocer catheter, bed-bound status initially presented to hospital with lower abdominal pain and blood per rectum found to have 1. Acute kidney injury with underlying CKD 2. Bleeding per rectum currently resolved 3. Stercoral colitis 4. Anemia of chronic disease 5. Urinary tract infection , treated but likely colonization . 6. Chronic indwelling Alcocer catheter 7. C7 cervical fracture currently in cervical collar 8. Chronic right hip fracture with a bed-bound status Discharge Disposition: Home with Health Services SNF Discharge Will this Physician continue t: No Discharge Instruct/Medications Diet: Cardiac 2g Na,low cholest, Renal Activity: No Restrictions, As Tolerated Follow Up/Referral: Follow up with the PCP in one week Follow up with Dr. David as outpatient in one week to discuss about dialysis as patient's GFR is around 15. Medications: Resume home medications, hold losartan Discharge Statement: "Patient was advised to return to the ER or call 911 if any headaches, dizziness, shortness of breath, chest pain, abdominal pain, bleeding, fevers, or worsening of medical condition. Patient was counseled about treatment plan, medications, possible side effects, patientverbalized understanding. All questions were answered to the best of my ability. This discharge took greater then 30 minutes in planning, reviewing documentation, counseling the patient, and discussing with other team members." ASSESSMENT ASSESSMENT Assessment This is a follow up on 78-year-old female with a known history of chronic right hip fracture four months, recent C7 fracture currently on cervical collar , chronic indwelling Alcocer catheter, bed-bound status initially presented to hospital with lower abdominal pain and blood per rectum found to have 1. Acute kidney injury with underlying CKD 2. Bleeding per rectum currently resolved 3. Stercoral colitis 4. Anemia of chronic disease 5. Urinary tract infection , treated but likely colonization . 6. Chronic indwelling Alcocer catheter 7. C7 cervical fracture currently in cervical collar 8. Chronic right hip fracture with a bed-bound status Date of Service: Jul 30, 2024 Billing Provider: SANDHYA JOHNSON MD Common Visit Codes: NOT BILLABLE SANDHYA JOHNSON MD Jul 30, 2024 17:05
--- NOTE | 2024-07-30 17:56 | DVHPN2 ---
Progress Note Date Seen: Jul 30, 2024 Resident Creating Document: GUILLERMINA HENRY RESIDENT Has the PT tested + for MRSA If YES, has PT been informed?: No Medical Necessity Reason Pt with a Central, PICC or Fol: No Subjective Review of Systems This is a 78-year-old female past medical history of C7 fracture, chronic right hip fracture, asthma, DM, CKD, presented with complaints of lower abdominal pain and bright red blood per rectum x1 day. Patient is bed-bound. Abdomen is tender in the left lower quadrant. Sister states the patient was having bowel movement and bright red blood and clot was removed from the rectum. During the emergency department evaluation CT abdomen and pelvis was positive for stercoral colitis and had demonstration of the right hip fracture vs osteomyelitis. Patient and patient sister confirmed Right hip has chronic fracture for Which the patient chose not to have Surgery. At this time patient denies fevers, chills, shortness of breath, chest pain, nausea, vomiting. Patient seen and examined at bedside. Patient is bed-bound, has chronic hip fracture which was seen by orthopedic surgeon but patient and family does not want any further procedure at this time. Last bowel movement was this morning which was not having any blood in the stools for the past 2 days. Hemoglobin has been kind of stable at 9.1. CT of the abdomen showed marked retained stool in the rectum with mild wall thickening and presacral edema. There was also mildly dilated gallbladder with cholelithiasis and possible cholecystitis. There was also colonic diverticulosis without diverticulitis. We ordered iron panel, ferritin, stool occult blood test, carcinoembryonic antigen level, B12 and folate levels. We have an extensive discussion with the family and patient regarding colonoscopy as an outpatient which both patient and family agreed. ROS Constitutional: Denies weight loss, fever and chills. HEENT: Denies changes in vision and hearing. Respiratory: Denies shortness of breath and cough Cardiovascular: Denies chest discomfort or palpitations GI: Denies abdominal pain, nausea, vomiting and diarrhea. : Denies dysuria and urinary frequency. Musculoskeletal: Denies myalgias and joint pain Skin: Denies rash and pruritus. Neurological: Denies dizziness, headache, vision or hearing problems Objective vital signs Vital Sign Date Time Temp Pulse Resp B/P (MAP) Pulse Ox O2 Delivery O2 Flow Rate FiO2 07/30/24 13:00 97.1 79 17 127/67 (87) 99 97.1 07/29/24 19:30 Nasal Cannula* 2 28 Total Intake and Output 07/29/24 07/29/24 07/30/24 15:00 23:00 07:00 Intake Total 220 ml 400 ml Output Total 600 ml 650 ml Balance -380 ml -250 ml medications Current Medications Medications Dose Ordered Sig/Anthony Route Start Time Stop Time Status Last Admin Dose Admin Acetaminophen 650 mg Q6HP PRN PO 07/28/24 05:30 07/30/24 12:24 650 MG Ondansetron HCl 4 mg Q4HP PRN IV 07/28/24 05:30 Nitroglycerin 0.4 mg Q5MINP PRN SL 07/28/24 05:30 Morphine Sulfate 2 mg Q30M PRN IV 07/28/24 05:30 Psyllium Hydrophilic Mucilloid 1 pkg BID PO 07/28/24 10:00 07/30/24 11:17 1 PKG Ceftriaxone Sodium 50 ml @ 100 mls/hr Q24H IV 07/29/24 03:00 07/30/24 03:00 100 MLS/HR Diagnostic Test (Pha) 1 strip ACHS 07/28/24 07:00 07/30/24 11:45 1 STRIP Insulin Human Regular ACHS SC 07/28/24 07:00 07/28/24 06:58 2 UNITS Dextrose 50 ml UD PRN IV 07/28/24 06:45 Nifedipine 30 mg DAILY PO 07/29/24 10:00 07/30/24 11:17 30 MG Atorvastatin Calcium 20 mg HS PO 07/28/24 22:00 07/29/24 22:00 20 MG Hydralazine HCl 10 mg Q6HP PRN IV 07/28/24 17:15 Docusate Sodium 100 mg BID PO 07/29/24 10:00 07/30/24 11:17 100 MG Examination Physical Examination General: Patient alert and oriented in person, place and time. Patient following commands. HEENT: Normocephalic, atraumatic, moist mucous membranes Respiratory/pulmonary: Clear lungs bilaterally, vesicular murmurs present in almost all lung lisa, no associated crackles or wheezes. Cardiovascular: Normal heart sounds S1 and S2 with no associated murmurs Abdomen: Abdomen nondistended, there is no pain to palpation in any of the abdominal quadrants, no palpable masses. Extremities: There is mild right hip pain when doing active movement. There is no peripheral edema present at the lower extremities. Peripheral Pulses: 3+ Radial (R). 3+ Radial (L). 3+ Dorsalis pedis (R). 3+ Dorsalis pedis(L) Skin: No rashes or pruritus, there is no sacral edema present at this time. Neurological: Intact cranial nerves with no focal neurologic deficits laboratory and microbiology Laboratory Tests 07/30/24 07:59 Test 07/30/24 07:59 Range/Units Serum Glucose 96 74-106 mg/dL Microbiology Date/Time Source Procedure Growth Status 07/29/24 17:23 Urine - Midstream Clean Catch Urine Culture - Preliminary Resulted Problem List/Assessment/Plan Problem List/Assessment/Plan Assessment/Plan Acute on chronic kidney disease stage IV -creatinine was 3.50, BUN 54 -monitor kidney function -nephrology on board Anemia of chronic disease/ CKD -last hemoglobin was 9.1, previously 8.8. -Monitor Hb and Hct -ordered iron panel, ferritin which came back normal an elevated respectively Possible stercoral colitis -Abnormal findingn on CT scan Marked retained stool in the rectum which is mildly dilated with mild wall thickening and presacral edema. Consider stercoral colitis. -IV antibiotics -IV fluid hydration -Stool softeners (miralax prn) -Advance diet as tolerated -possible colonoscopy as an outpatient Possible acute pancreatitis -lipase level was 115 -IV fluids and bowel rest -progress diet at this time Chronic right hip fracture -orthopedics on board -patient and family agree on no procedure at this time -mobilize patient as tolerated Goals of care discussed with the patient and family at bedside, full code Plan discussed with Dr. Davis. Plan discussed with: Patient My Orders My Orders Orders - GUILLERMINA HENRY Procedure Category Date Status Time Stool Occult Blood LAB 07/30/24 Logged 12:42 GUILLERMINA HENRY Jul 30, 2024 17:56
[2024-07-30] MEDS ORDERED: POLYETHYLENE GLYCOL 17 GM PWDR PO PRN (18:30)
--- NOTE | 2024-07-30 20:19 | DVHPN2 ---
Progress Note - Dictate Date Seen: Jul 30, 2024 Has the PT tested + for MRSA If YES, has PT been informed?: No Medical Necessity Reason Pt with a Central, PICC or Fol: No Subjective patient is seen and evaluated Last bowel movement was this morning which was not having any blood in the stools for the past [address] of the abdomen showed marked retained stool in the rectum with mild wall thickening and presacral edema. vital signs Vital Sign Date Time Temp Pulse Resp B/P (MAP) Pulse Ox O2 Delivery O2 Flow Rate FiO2 07/30/24 19:54 36.2 07/30/24 17:00 91 16 122/63 (82) 98 07/29/24 19:30 Nasal Cannula* 2 28 Total Intake and Output 07/29/24 07/29/24 07/30/24 14:59 22:59 06:59 Intake Total 220 ml 400 ml Output Total 600 ml 650 ml Balance -380 ml -250 ml medications Current Medications Medications Dose Ordered Sig/Anthony Route Start Time Stop Time Status Last Admin Dose Admin Acetaminophen 650 mg Q6HP PRN PO 07/28/24 05:30 07/30/24 12:24 650 MG Ondansetron HCl 4 mg Q4HP PRN IV 07/28/24 05:30 Nitroglycerin 0.4 mg Q5MINP PRN SL 07/28/24 05:30 Morphine Sulfate 2 mg Q30M PRN IV 07/28/24 05:30 Psyllium Hydrophilic Mucilloid 1 pkg BID PO 07/28/24 10:00 07/30/24 11:17 1 PKG Ceftriaxone Sodium 50 ml @ 100 mls/hr Q24H IV 07/29/24 03:00 07/30/24 03:00 100 MLS/HR Diagnostic Test (Pha) 1 strip ACHS 07/28/24 07:00 07/30/24 11:45 1 STRIP Insulin Human Regular ACHS SC 07/28/24 07:00 07/28/24 06:58 2 UNITS Dextrose 50 ml UD PRN IV 07/28/24 06:45 Nifedipine 30 mg DAILY PO 07/29/24 10:00 07/30/24 11:17 30 MG Atorvastatin Calcium 20 mg HS PO 07/28/24 22:00 07/29/24 22:00 20 MG Hydralazine HCl 10 mg Q6HP PRN IV 07/28/24 17:15 Docusate Sodium 100 mg BID PO 07/29/24 10:00 07/30/24 11:17 100 MG Polyethylene Glycol 17 gm DAILYPRN PRN PO 07/30/24 18:30 objective General: Patient alert and oriented in person, place and time. Patient following commands. HEENT: Normocephalic, atraumatic, moist mucous membranes Respiratory/pulmonary: Clear lungs bilaterally, vesicular murmurs present in almost all lung lisa, no associated crackles or wheezes. Cardiovascular: Normal heart sounds S1 and S2 with no associated murmurs Abdomen: Abdomen nondistended, there is no pain to palpation in any of the abdominal quadrants, no palpable masses. Extremities: There is mild right hip pain when doing active movement. There is no peripheral edema present at the lower extremities. Peripheral Pulses: 3+ Radial (R). 3+ Radial (L). 3+ Dorsalis pedis (R). 3+ Dorsalis pedis(L) Skin: No rashes or pruritus, there is no sacral edema present at this time. Neurological: Intact cranial nerves with no focal neurologic deficits laboratory and microbiology Laboratory Tests 07/30/24 07:59 Test 07/30/24 07:59 Range/Units Serum Glucose 96 74-106 mg/dL Assessment/Plan A 78-female patient who presents to the hospital with UTI Chronic right femoral neck fracture Lower GI bleed Stercoral colitis DM CKD Hx C7 fracture YANNICK GUILLERMO MD Jul 30, 2024 20:19
== END 2024-07-30 21:49 | disposition home health service (06) | DRG 391 ==
LOC: ER 22:22 → EDBD 22:22 → OVERFLOW 07-28 05:28 → WEST WING 07-28 09:20
PROVIDERS: ADMIT Internal Medicine; ATTEND Internal Medicine
DX: K52.89 Other specified noninfective gastroenteritis and colitis (principal); K85.90 Acute pancreatitis without necrosis or infection, unspecified; N17.0 Acute kidney failure with tubular necrosis; N39.0 Urinary tract infection, site not specified; N18.4 Chronic kidney disease, stage 4 (severe); S12.6 Fracture of seventh cervical vertebra; D63.1 Anemia in chronic kidney disease; E11.22 Type 2 diabetes mellitus with diabetic chronic kidney disease; K59.00 Constipation, unspecified; I12.9 Hypertensive chronic kidney disease with stage 1 through stage 4 chronic kidney disease, or unspecified chronic kidney disease; J45.909 Unspecified asthma, uncomplicated; G89.29 Other chronic pain; Z74.01 Bed confinement status; Z79.899 Other long term (current) drug therapy; X58.XXXD Exposure to other specified factors, subsequent encounter; Z79.84 Long term (current) use of oral hypoglycemic drugs
CPT/HCPCS: 36415; 74176; 80048; 80053; 81001; 82378; 82607; 82728; 82746; 82962; 83540; 83550; 83690; 83735; 84443; 85025; 85610; 85730; 86850; 86900; 86901; 87086; 87088; 97110; 97163; 97530; 99291; G0378